=== PATIENT | female | born 1950 | race Caucasian/White ===

== ENCOUNTER 2017-04-18 18:10 | Emergency (ER) | payer OTHER ==
[2017-04-18 18:29] VITALS: RESP 16; TEMP 97.9
[2017-04-18] MEDS ORDERED: Amoxicillin-Clav 875-125 mg Tab PO STA (18:58)
[2017-04-18] MEDS ORDERED: Amoxicillin-Clav 875-125 mg Tab PO ONE (19:06)
--- NOTE | 2017-04-18 19:30 | C.PDOC ---
History Of Present Illness Patient is a 67 year old female who presents to the ER for an evaluation of a dog bite. Patient states she was bit on her right leg by a small dog yesterday evening. Patient tried to speak with helper driver, but did not understand the language , however dog had collar, appeared well and likely vaccinated. Patient's tetanus is not up to date. Patient denies fever or other complaints Time Seen by Provider: 04/18/17 18:54 Chief Complaint (Nursing): Bite History Per: Patient History/Exam Limitations: no limitations Onset/Duration Of Symptoms: Days (Since last night) Location Of Injury: Anterior: Leg Recent travel outside of the [place]: No Past Medical History Reviewed: Historical Data, Nursing Documentation, Vital Signs Vital Signs: Last Vital Signs Temp 97.9 F 04/18/17 20:04 Pulse 61 04/18/17 20:04 Resp 16 04/18/17 20:04 BP 150/84 04/18/17 20:04 Pulse Ox 98 04/18/17 22:39 - Medical History PMH: No Chronic Diseases Surgical History: No Surg Hx Family History: States: Unknown Family Hx - Social History Hx Alcohol Use: No Hx Substance Use: No - Immunization History Hx Tetanus Toxoid Vaccination: No Hx Influenza Vaccination: No Hx Pneumococcal Vaccination: No Review Of Systems Constitutional: Negative for: Fever, Chills Gastrointestinal: Negative for: Nausea, Vomiting Musculoskeletal: Positive for: Other (Right leg dog bite) Physical Exam - Physical Exam Appears: Well, Non-toxic Skin: Normal Color, Warm, Dry Head: Atraumatic, Normacephalic Eye(s): bilateral: Normal Inspection Extremity: Normal ROM, No Tenderness, No Calf Tenderness, Other (Superficial bite, posterior right calf. Healing tissue, no erythema or swelling.) Neurological/Psych: Oriented x3, Normal Speech, Other (No focal deficits) ED Course And Treatment O2 Sat by Pulse Oximetry: 98 (Room air) Pulse Ox Interpretation: Normal Medical Decision Making Medical Decision Making: Impression: 67 year old female with dog bite to right leg. Unknown status of vaccination, however animal is pet and appeared well groomed likely UTD. Advise patient to contact helper driver. Plan: * Augmentin * Tetanus Reasses: dressing applied. Rx given Disposition Counseled Patient/Family Regarding: Need For Followup, Rx Given - Disposition Disposition: HOME/ ROUTINE Disposition Time: 19:28 Condition: STABLE Additional Instructions: Take antibiotic twice daily keep wound clean and dry Prescriptions: Amoxicillin/Clavulanate [Augmentin 875 MG-125 MG] 1 tab PO BID #14 tab Instructions: Animal Bite (ED) - POA Present On Arrival: None - Clinical Impression Clinical Impression: Animal bite wound - Scribe Statement The provider has reviewed the documentation as recorded by the Scribgracie Joe All medical record entries made by the Josephibgracie were at my direction and personally dictated by me. I have reviewed the chart and agree that the record accurately reflects my personal performance of the history, physical exam, medical decision making, and the department course for this patient. I have also personally directed, reviewed, and agree with the discharge instructions and disposition.
[2017-04-18 20:05] VITALS: BP 150/84; PULSE 61
[2017-04-18 22:31] VITALS: O2SAT 98
== END 2017-04-18 20:05 | disposition home or self-care (01) ==
LOC: C.ER 18:10
DX: S80.871A Other superficial bite, right lower leg, initial encounter (principal); W54.0XXA Bitten by dog, initial encounter; Y93.9 Activity, unspecified; Y92.410 Unspecified street and highway as the place of occurrence of the external cause

== ENCOUNTER 2018-07-07 04:59 | Inpatient (IN) | payer OTHER ==
--- NOTE | 2018-07-07 06:18 | C.PDOC ---
History Of Present Illness 68 year old female with no PMH presents to the ED complaining of right sided leg pain s/p trip and fall outside on 06/26/18. 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 Patient was seen by PMD Dr. Chino yesterday, who gave her RX for XR though she was unable to go therefore she came to ED. She notes she is unable to sleep or walk due to the pain. She denies any other trauma/injuries, LOC, neck pain, dizziness, headache, change in sensation, incontinence, abdominal pain, or any other symptoms. Time Seen by Provider: 07/07/18 05:09 Chief Complaint (Nursing): Lower Extremity Problem/Injury History Per: Patient History/Exam Limitations: no limitations Onset/Duration Of Symptoms: Days Current Symptoms Are (Timing): Still Present - Hip Description Of Injury: Fell Past Medical History Reviewed: Historical Data, Nursing Documentation, Vital Signs Vital Signs: Last Vital Signs Temp 99.3 F 07/07/18 15:29 Pulse 59 L 07/07/18 15:29 Resp 20 07/07/18 15:29 BP 158/68 H 07/07/18 15:29 Pulse Ox 100 07/07/18 15:29 - Medical History PMH: No Chronic Diseases Other Surgeries: Hx of surgeries Family History: States: No Known Family Hx - Social History Hx Alcohol Use: No Hx Substance Use: No - Immunization History Hx Tetanus Toxoid Vaccination: No Hx Influenza Vaccination: No Hx Pneumococcal Vaccination: No Review Of Systems Except As Marked, All Systems Reviewed And Found Negative. Cardiovascular: Negative for: Chest Pain Respiratory: Negative for: Shortness of Breath Musculoskeletal: Positive for: Leg Pain (Right) Neurological: Negative for: Headache, Dizziness Physical Exam - Physical Exam Appears: Non-toxic, In Acute Distress (in painful distress) Skin: Warm, Dry Head: Atraumatic, Normacephalic Eye(s): bilateral: Normal Inspection, EOMI Nose: Normal Oral Mucosa: Moist Neck: Normal ROM, Trachea Midline, Supple Chest: Symmetrical Cardiovascular: Rhythm Regular Respiratory: Normal Breath Sounds, No Accessory Muscle Use, Other (Speaking full sentences) Back: No CVA Tenderness, No Vertebral Tenderness, Paraspinal Tenderness ((+) right paralumbar tenderness) Extremity: No Normal ROM (decreased secondary to pain, leg bend into her body, unable to straighten), Tenderness (tenderness to right hip and proximal femur), No Calf Tenderness, No Deformity Pulses: Left Dorsalis Pedis: Normal, Right Dorsalis Pedis: Normal Neurological/Psych: Oriented x3, Normal Speech, Normal Sensation Gait: Steady ED Course And Treatment - Laboratory Results Result Diagrams: 07/07/18 06:30 07/07/18 06:30 O2 Sat by Pulse Oximetry: 100 (RA) Pulse Ox Interpretation: Normal - Other Rad R Hip XR X-Ray: Interpreted by Me (Dr Matthews), Viewed By Me Interpretation: (+) right hip fx of femoral neck Progress Note: Patient given Flexeril 5mg Po, Toradol 15mg IM, and IV fluids. XRay of the fermur, hip, and LS spine were also ordered. Upon reviewing the XRs , labs ordered. Case discussed with Dr Matthews, agreed upon plan and admission. Case discussed with Dr Matti Song , agreed upon admission. Case discussed with Dr Ayers, agreed upon admission. Disposition - Disposition Disposition: HOSPITALIZED Disposition Time: 07:04 Condition: STABLE - Clinical Impression Clinical Impression: Fracture of right hip - PA / FRANKFURTER INSPECTOR / Resident Statement MD/DO has reviewed & agrees with the documentation as recorded. - Scribe Statement The provider has reviewed the documentation as recorded by the Josephibgracie Marion All medical record entries made by the Benjy were at my direction and personally dictated by me. I have reviewed the chart and agree that the record accurately reflects my personal performance of the history, physical exam, medical decision making, and the department course for this patient. I have also personally directed, reviewed, and agree with the discharge instructions and disposition.
[2018-07-07] MEDS ORDERED: Sodium Chloride 0.9% 1,000 ML IV ONE (06:20)
[2018-07-07] MEDS ORDERED: Sodium Chloride 0.9% 1,000 ML ONE (06:33)
[2018-07-07 06:45] LABS: BASO % 0.2 % (0.0-2.0); EOS % 0.1 % (0.0-4.0); HEMOGLOBIN 11.4 g/dL (11.0-16.0); LYMPH % 13.6 % (20.0-40.0); MEAN CELL VOLUME 92.2 fL (81.0-99.0); MEAN CORPUSCULAR HEMOGLOBIN 31.2 pg (27.0-31.0); MEAN CORPUSCULAR HGB CONC 33.9 g/dL (33.0-37.0); MEAN PLATELET VOLUME 7.2 fL (7.2-11.7); MONO # 0.7 K/uL (0.0-0.8); MONO % 9.1 % (0.0-10.0); NEUT # 5.6 K/uL (1.8-7.0); RBC 3.65 Mil/uL (3.80-5.20); RED CELL DISTRIBUTION WIDTH 15.5 % (11.5-14.5); WHITE BLOOD COUNT 7.2 K/uL (4.8-10.8)
[2018-07-07 06:56] LABS: ALB/GLOB RATIO 1.2 (1.0-2.1); ALBUMIN 3.8 g/dL (3.5-5.0); ALT/SGPT 19 U/L (9-52); AST/SGOT 26 U/L (14-36); BLOOD UREA NITROGEN 12 mg/dL (7-17); CALCIUM 8.8 mg/dl (8.6-10.4); GFR AFRICAN-AMERICAN > 60; GFR NON-AFRICAN AMERICAN > 60
[2018-07-07 07:17] LABS: INR 1.1; PROTHROMBIN TIME 12.1 SECONDS (9.7-12.2)
[2018-07-07] MEDS ORDERED: Morphine 4 MG/ML VIAL IV PRN (08:44)
--- NOTE | 2018-07-07 10:33 | RAD ---
Date of service: 07/07/2018 PROCEDURE: HISTORY: trauma -fell 1 week ago COMPARISON: None TECHNIQUE: AP view of the pelvis and applicable frog leg views obtained. FINDINGS: Complete right femoral neck fracture with proximal unopposed pull of the distal femoral segment present. The femoral head remains in the acetabulum. IMPRESSION: Complete right femoral neck fracture with proximal unopposed pull of the distal main femoral segment. Femoral head remains in the acetabulum. Comments: Findings called up to patient's floor and given to nurse, Gertrudis Feliz at 10:30 a.m. on 07/07/2018
--- NOTE | 2018-07-07 10:35 | RAD ---
Date of service: 07/07/2018 PROCEDURE: HISTORY: trauma. Fell 1 week ago COMPARISON: Right hip pelvic x-ray 07/07/2018 TECHNIQUE: Single view of the femur FINDINGS: The complete right femoral neck fracture is noted and was called up to the floor with the patient is located given to the nurse please note the hip report regarding those details The most distal femoral aspects of the femur are not visually included on this single frontal view. The right femoral shaft is intact. The right femoral head remains in the acetabular fossa as noted on the prior right hip x-ray report. IMPRESSION: Complete right femoral neck fracture. Right femoral shaft intact. Please note same-day right hip and pelvis x-ray report for further details
--- NOTE | 2018-07-07 10:38 | RAD ---
Date of service: 07/07/2018 PROCEDURE: Radiographs of the Lumbar Spine. HISTORY: trauma COMPARISON: No prior. FINDINGS: BONES: No lumbar vertebral body fractures noted. There is grade 1 spondylolisthesis of L4 relative to L5. There is L4-5 and L5-S1 facet hypertrophic arthrosis as well. The chronicity of this subluxation is not known. No oblique views to assess for any potential pars defects is available. Pars defects versus ligamentous laxity associated with the facet hypertrophic arthrosis are considerations. The spinal canal is shallow in appearance at this L4-5 and L5 levels. Levels DISC SPACES: Narrowed L5-S1 OTHER FINDINGS: The moderate stool and gas impedes optimal evaluation of the sacrum IMPRESSION: Grade 1 spondylolisthesis of L4 relative to L5. Additional findings as noted above. No lumbar vertebral body height compression fracture noted. The appearance of the L5 lumbar vertebrae is attributed to Schmorl's node indentation. For purposes of this report L1 is considered with rudimentary ribs.
--- NOTE | 2018-07-07 10:49 | RAD ---
Date of service: 07/07/2018 HISTORY: pre-op; pt has hip fracture and for OR COMPARISON: No prior. FINDINGS: LUNGS: No active pulmonary disease. PLEURA: No significant pleural effusion identified, no pneumothorax apparent. CARDIOVASCULAR: Mild cardiomegaly not excluded. No pulmonary vascular congestion. Fullness of the right hilar region may reflect vascular overlap though lymphadenopathy or mass is not excluded. Follow-up chest is advised when feasible. OSSEOUS STRUCTURES: No significant abnormalities. VISUALIZED UPPER ABDOMEN: Normal. OTHER FINDINGS: None. IMPRESSION: Vascular overlap versus adenopathy or nodule right hilar region. Follow-up chest CT with contrast advised when feasible. Mild cardiomegaly not excluded. No infiltrate, pulmonary vascular congestion, pleural effusion or pneumothorax bilaterally.
[2018-07-07 12:23] LABS: SQUAMOUS EPITHIAL < 1 /hpf (0-5); URINE AMORPHOUS SEDIMENT RARE /ul (<OCC); URINE BILIRUBIN NEGATIVE (NEGATIVE); URINE BLOOD NEGATIVE (NEGATIVE); URINE CLARITY Hazy (Clear); URINE COLOR Yellow (YELLOW); URINE GLUCOSE (UA) NORMAL (Normal); URINE LEUKOCYTE ESTERASE NEG Leu/uL (Negative); URINE PROTEIN NEGATIVE (NEGATIVE); URINE UROBILINOGEN NORMAL mg/dL (0.2-1.0)
--- NOTE | 2018-07-07 15:25 | CARD ---
APPROVED REPORT Date of service: 07/07/2018 EKG Measurement Heart [id number] HI 120P13 [id number] <Conclusion> Normal sinus rhythm Inferior infarct, age undetermined T wave abnormality, consider anterior ischemia Abnormal ECG
--- NOTE | 2018-07-07 15:41 | CP.PCM.CON ---
History of Present Illness - History of Present Illness History of Present Illness: Patient is a 68 y/o female with no significant PMH who presented to the [facility] ER with c/o worsening R hip pain. The patient states that she lost her balance and fell on the road onto her right side while walking to work on 06/26/18. She was able to get up and ambulate with a limp and manageable pain. For the past week and a half, she has been bearing the pain and walking to work until she could no longer take the pain until today. Dr. Canales was consulted for orthopedic evaluation. Currently her pain is rated a 8/10, dull and intermittent. The pain is worsened with movement and WB, alleviated with rest. The pain is associated with swelling. She denies any radiation of pain, numbness or tingling. She also denies CP/SOB/N/V/D/fever/dysuria/melena. She denies any cardiac stents/MS/CVA/DVT/PE. Review of Systems - Review of Systems All systems: reviewed and no additional remarkable complaints except Review of Systems: as per HPI Past Patient History - Past Medical History & Family History Past Medical History?: No Past Family History: Reviewed and not pertinent - Past Social History Smoking Status: Never Smoked Alcohol: None Drugs: Denies - CARDIAC Hx Cardiac Disorders: No - PULMONARY Hx Respiratory Disorders: No - NEUROLOGICAL Hx Neurological Disorder: No - HEENT Hx HEENT Problems: No - RENAL Hx Chronic Kidney Disease: No - ENDOCRINE/METABOLIC Hx Endocrine Disorders: No - HEMATOLOGICAL/ONCOLOGICAL Hx Blood Disorders: No - INTEGUMENTARY Hx Dermatological Problems: No - MUSCULOSKELETAL/RHEUMATOLOGICAL Hx Falls: No - GASTROINTESTINAL Hx Gastrointestinal Disorders: No - GENITOURINARY/GYNECOLOGICAL Hx Genitourinary Disorders: No - PSYCHIATRIC Hx Psychophysiologic Disorder: No Hx Substance Use: No - SURGICAL HISTORY Hx Surgeries: Yes Hx Section: Yes (x2) - ANESTHESIA Hx Anesthesia: Yes Hx Anesthesia Reactions: No Has any member of the family had a problem w/ anesthesia?: No Meds Allergies/Adverse Reactions: Allergies Allergy/AdvReac Type Severity Reaction Status Date / Time No Known Allergies Allergy Verified 07/07/18 05:09 - Medications Medications: Current Medications Sodium Chloride (Sodium Chloride 0.9%) 1,000 mls @ 100 mls/hr IV .Q10H ONE Stop: 07/07/18 16:19 Last Admin: 07/07/18 06:32 Dose: 100 mls/hr Morphine Sulfate (Morphine) 4 mg IV Q4 PRN PRN Reason: Pain, severe (8-10) Physical Exam - Constitutional Appears: Well, No Acute Distress - Head Exam Head Exam: ATRAUMATIC, NORMOCEPHALIC - Eye Exam Eye Exam: EOMI, Normal appearance, PERRL - ENT Exam ENT Exam: Mucous Membranes Moist - Respiratory Exam Respiratory Exam: Clear to Auscultation Bilateral, NORMAL BREATHING PATTERN - Cardiovascular Exam Cardiovascular Exam: +S1, +S2 - GI/Abdominal Exam GI & Abdominal Exam: Normal Bowel Sounds, Soft - Extremities Exam Additional comments: R hip: mild swelling, +shortened/ER limb +tenderness lateral hip and groin ROM restricted due to fx sensation intact SP/DP/TN motor intact EHL/FHL/TA/G pedal pulses intact comps soft/NT - Neurological Exam Neurological exam: Alert, Oriented x3 - Psychiatric Exam Psychiatric exam: Normal Affect, Normal Mood - Skin Skin Exam: Normal Color, Warm Results - Vital Signs Recent Vital Signs: Last Vital Signs Temp 98.4 F 07/07/18 09:00 Pulse 68 07/07/18 09:00 Resp 20 07/07/18 09:00 BP 129/72 07/07/18 09:00 Pulse Ox 99 07/07/18 09:00 - Labs Result Diagrams: 07/07/18 06:30 07/07/18 06:30 Labs: Laboratory Results - last 24 hr 07/07/18 07/07/18 07/07/18 06:30 06:30 06:30 WBC 7.2 RBC 3.65 L Hgb 11.4 Hct 33.7 L MCV 92.2 MCH 31.2 H MCHC 33.9 RDW 15.5 H Plt Count 258 MPV 7.2 Neut % (Auto) 77.0 H Lymph % (Auto) 13.6 L Sevier % (Auto) 9.1 Eos % (Auto) 0.1 Baso % (Auto) 0.2 Neut # (Auto) 5.6 Lymph # (Auto) 1.0 Sevier # (Auto) 0.7 Eos # (Auto) 0.0 Baso # (Auto) 0.0 PT 12.1 INR 1.1 APTT 32 Sodium 140 Potassium 3.7 Chloride 107 Carbon Dioxide 23 Anion Gap 14 BUN 12 Creatinine 0.4 L Est GFR ( Amer) > 60 Est GFR (Non-Af Amer) > 60 Random Glucose 144 H Calcium 8.8 Total Bilirubin 1.3 AST 26 ALT 19 Alkaline Phosphatase 131 H Total Protein 7.0 Albumin 3.8 Globulin 3.2 Albumin/Globulin Ratio 1.2 Urine Color Urine Clarity Urine pH Ur Specific [place] Urine Protein Urine Glucose (UA) Urine Ketones Urine Blood Urine Nitrate Urine Bilirubin Urine Urobilinogen Ur Leukocyte Esterase Urine WBC (Auto) Urine RBC (Auto) Ur Squamous Epith Cells Amorphous Sediment 07/07/18 11:59 WBC RBC Hgb Hct MCV MCH MCHC RDW Plt Count MPV Neut % (Auto) Lymph % (Auto) Sevier % (Auto) Eos % (Auto) Baso % (Auto) Neut # (Auto) Lymph # (Auto) Sevier # (Auto) Eos # (Auto) Baso # (Auto) PT INR APTT Sodium Potassium Chloride Carbon Dioxide Anion Gap BUN Creatinine Est GFR ( Amer) Est GFR (Non-Af Amer) Random Glucose Calcium Total Bilirubin AST ALT Alkaline Phosphatase Total Protein Albumin Globulin Albumin/Globulin Ratio Urine Color Yellow Urine Clarity Hazy Urine pH 8.0 Ur Specific [place] 1.011 Urine Protein Negative Urine Glucose (UA) Normal Urine Ketones Trace Urine Blood Negative Urine Nitrate Negative Urine Bilirubin Negative Urine Urobilinogen Normal Ur Leukocyte Esterase Neg Urine WBC (Auto) 1 Urine RBC (Auto) < 1 Ur Squamous Epith Cells < 1 Amorphous Sediment Rare H Assessment & Plan (1) Displaced fracture of right femoral neck Assessment and Plan: -Dr. Canales proposes a right JESUS ALBERTO in OR tomorrow AM. Pros/Cons/risk/benefits of procedure were explained to pt in detail. The patient and her sons express understanding and agree to proceed with procedure. -Medical clearance -T&S -Collazo -Yadkin traction, overhead trapeze -pain control -NPO pMN -above d/w Dr. Canales in agreement Status: Acute - Date & Time Date: 07/07/18 Time: 15:00 Radiology Interpretation - Notes: Notes:: Accession No. : [id number] Patient Name / ID : JAMIE VALENCIA / [id number] Exam Date : 07/07/2018 06:11:16 ( Approved ) Study Comment : Sex / Age : F / 68Y Creator : Laverne Alainz V. Dictator : Laverne Alaniz V. Gasfitter : Judicial Law Clerk : Laverne Alaniz V. Approver2 : Report Date : 07/07/2018 10:32:01 My Comment : Date of service: 07/07/2018 PROCEDURE: HISTORY: trauma -fell 1 week ago COMPARISON: None TECHNIQUE: AP view of the pelvis and applicable frog leg views obtained. FINDINGS: Complete right femoral neck fracture with proximal unopposed pull of the distal femoral segment present. The femoral head remains in the acetabulum. IMPRESSION: Complete right femoral neck fracture with proximal unopposed pull of the distal main femoral segment. Femoral head remains in the acetabulum. - Radiology Interpretation #2 Interpretation: Accession No. : [id number] Patient Name / ID : JAMIE VALENCIA / [id number] Exam Date : 07/07/2018 16:03:07 ( Approved ) Study Comment : Sex / Age : F / 68Y Creator : Serene White Dictator : Laverne Alaniz V. Gasfitter : Judicial Law Clerk : Laverne Alaniz V. Approver2 : Report Date : 07/07/2018 16:06:46 My Comment : Date of service: 07/07/2018 PROCEDURE: CT of the right Hip. HISTORY: R hip displaced femoral neck fx COMPARISON: Right hip and right femur x-rays performed on the same day 07/07/2018 TECHNIQUE: Contiguous axial images of the left hip were obtained. Coronal and sagittal reformats were generated. This CT exam was performed using one or more of the following dose reduction techniques: Automated exposure control, adjustment of the mA and/or kV according to patient size, and/or use of iterative reconstruction technique. Dose report: 161mGy-cm FINDINGS: BONES: The right femoral neck fracture anterior diastases of the fracture ends up to 1.5 cm without posterior fracture line displacement transverse plane noted. The right distal remaining femoral segment is superiorly roy connoting compatible with an unopposed muscle pull.. Femoral head maintains normal contour in the right acetabulum. A few intra osseous cystic components of the proximal right femoral neck fracture ends are noted and is ossific densities chip fracture fragments within the anterior diastatic fractured ends is noted. No additional right hemipelvic fractures noted LEFT HIP JOINT: No dislocation. SOFT TISSUES: Unremarkable. IMPRESSION: Right femoral neck fracture- as detailed above No dislocation
--- NOTE | 2018-07-07 16:24 | CT ---
Date of service: 07/07/2018 PROCEDURE: CT of the right Hip. HISTORY: R hip displaced femoral neck fx COMPARISON: Right hip and right femur x-rays performed on the same day 07/07/2018 TECHNIQUE: Contiguous axial images of the left hip were obtained. Coronal and sagittal reformats were generated. This CT exam was performed using one or more of the following dose reduction techniques: Automated exposure control, adjustment of the mA and/or kV according to patient size, and/or use of iterative reconstruction technique. Dose report: 161mGy-cm FINDINGS: BONES: The right femoral neck fracture anterior diastases of the fracture ends up to 1.5 cm without posterior fracture line displacement transverse plane noted. The right distal remaining femoral segment is superiorly roy connoting compatible with an unopposed muscle pull.. Femoral head maintains normal contour in the right acetabulum. A few intra osseous cystic components of the proximal right femoral neck fracture ends are noted and is ossific densities chip fracture fragments within the anterior diastatic fractured ends is noted. No additional right hemipelvic fractures noted LEFT HIP JOINT: No dislocation. SOFT TISSUES: Unremarkable. IMPRESSION: Right femoral neck fracture- as detailed above No dislocation
--- NOTE | 2018-07-07 20:15 | CP.PCM.PN ---
Subjective - Date & Time of Evaluation Date of Evaluation: 07/07/18 Time of Evaluation: 12:00 - Subjective Subjective: c/o rt leg pain. no fever. no chest pain. no sob. Objective - Vital Signs/Intake and Output Vital Signs (last 24 hours): Temp Pulse Resp BP Pulse Ox 99.3 F 59 L 20 158/68 H 100 07/07/18 15:29 07/07/18 15:29 07/07/18 15:29 07/07/18 15:29 07/07/18 15:29 - Medications Medications: Current Medications Morphine Sulfate (Morphine) 4 mg IV Q4 PRN PRN Reason: Pain, severe (8-10) Last Admin: 07/07/18 19:58 Dose: 4 mg - Labs Labs: 07/07/18 06:30 07/07/18 06:30 PT 12.1 SECONDS (9.7-12.2) 07/07/18 06:30 INR 1.1 07/07/18 06:30 APTT 32 SECONDS (21-34) 07/07/18 06:30 - Constitutional Appears: No Acute Distress - Eye Exam Eye Exam: Normal appearance, PERRL - ENT Exam ENT Exam: Mucous Membranes Moist - Neck Exam Neck Exam: Full ROM, Normal Inspection. absent: Lymphadenopathy - Respiratory Exam Respiratory Exam: Clear to Ausculation Bilateral, NORMAL BREATHING PATTERN - Cardiovascular Exam Cardiovascular Exam: REGULAR RHYTHM, +S1, +S2 - GI/Abdominal Exam GI & Abdominal Exam: Soft, Normal Bowel Sounds - Extremities Exam Extremities Exam: Full ROM, Normal Capillary Refill, Normal Inspection. absent : Joint Swelling, Pedal Edema - Neurological Exam Neurological Exam: Alert, Awake, CN II-XII Intact, Normal Gait, Oriented x3 - Psychiatric Exam Psychiatric exam: Normal Affect, Normal Mood Assessment and Plan - Assessment and Plan (Free Text) Assessment: medically stable with fracture rt hip. Plan: labs noted. ekg wnl. chest xray wnl. cleared medically for hip surgery.
--- NOTE | 2018-07-07 21:19 | HP ---
Copied To: Keith Chino MD Attending MD: Keith Chino MD HISTORY OF PRESENT ILLNESS: This is a 68-year-old female who was brought to the emergency room with history of fall on 06/26/2018. Patient complained of right thigh pain earlier. Patient was going to work and for the last few days she was not able to work because of the severe pain in the right thigh. Yesterday, patient was unable to bear weight on right leg, so she was brought to my office and referred for x-rays of femur, hip, and knees. Patient could not get that done. Since the pain was increasing and unbearable, she was brought to the emergency room by family. X-rays of the hip were done, which showed fracture of the right hip. REVIEW OF SYSTEMS CARDIOVASCULAR: Negative for chest pain. RESPIRATORY: Negative for shortness of breath. GI: Negative for nausea, vomiting, or abdominal pain. POLICE INSPECTOR: No focal neurological deficits. : No urinary complaints. No fever. PSYCHIATRIC: patient is stable. Other finding as mentioned above. PAST HISTORY: No history of hypertension, diabetes, OR myocardial infarction. MEDICATIONS: Patient is not on any medication at home. FAMILY HISTORY: No known inherited disease. SOCIAL HISTORY: Nonsmoker. Nonalcoholic. No IVDA. ALLERGIES: No known allergies. PHYSICAL EXAMINATION GENERAL: This is a 68-year-old female in severe right hip and thigh pain. Awake and alert. VITAL SIGNS: Temperature 98.2, pulse 61, respirations 16, blood pressure 170/80 mmHg, and pulse ox is 100% on room air. HEENT: Normal. NECK: JVP is flat. Carotid, no bruits. LUNGS: No rales. No wheezing. HEART: S1 and S2 normal. No gallop. No murmur. ABDOMEN: Soft, nontender. No organomegaly. POLICE INSPECTOR: No focal neurological deficits. EXTREMITIES: On the right extremity, severe pain and hip tenderness present. LABORATORY DATA: On admission, CBC is within normal limits. BMP is normal. X-ray of the chest is done and report is awaiting. IMPRESSION: Right hip fracture. Intractable right leg pain. PLAN: Patient will be admitted to the floor. We will get Orthopedic consult and patient may need operation. We will do pain management as of now. Patient is medically cleared for surgery. Keith Chino MD [facility] # [phone]
--- NOTE | 2018-07-08 09:32 | CP.PCM.PN ---
Subjective - Date & Time of Evaluation Date of Evaluation: 07/08/18 Time of Evaluation: 09:14 - Subjective Subjective: PT WAS GOR OR TODAY. EKG WAS QUESTIONABLE, THERE WAS NO PREVIOUS EKG TO COMPARE. DR. SPANN WAS CONSULTED. OR WAS CANCELLED. FOR ECHO AND STRESS TEST. Objective - Vital Signs/Intake and Output Vital Signs (last 24 hours): Temp Pulse Resp BP Pulse Ox 99.3 F 80 20 125/70 100 07/08/18 07:00 07/08/18 07:00 07/08/18 07:00 07/08/18 07:00 07/08/18 07:00 Intake and Output: 07/08/18 07/08/18 06:59 18:59 Intake Total 0 Output Total 400 Balance -400 - Medications Medications: Current Medications Morphine Sulfate (Morphine) 4 mg IV Q4 PRN PRN Reason: Pain, severe (8-10) Last Admin: 07/08/18 02:18 Dose: 4 mg - Labs Labs: 07/07/18 06:30 07/07/18 06:30 PT 12.1 SECONDS (9.7-12.2) 07/07/18 06:30 INR 1.1 07/07/18 06:30 APTT 32 SECONDS (21-34) 07/07/18 06:30 - Constitutional Appears: Non-toxic - Head Exam Head Exam: ATRAUMATIC, NORMAL INSPECTION, NORMOCEPHALIC - Eye Exam Eye Exam: EOMI, Normal appearance, PERRL Pupil Exam: NORMAL ACCOMODATION, PERRL - ENT Exam ENT Exam: Mucous Membranes Moist, Normal Exam - Neck Exam Neck Exam: Full ROM, Normal Inspection. absent: Lymphadenopathy - Respiratory Exam Respiratory Exam: Clear to Ausculation Bilateral, NORMAL BREATHING PATTERN - Cardiovascular Exam Cardiovascular Exam: REGULAR RHYTHM, +S1, +S2. absent: Murmur - GI/Abdominal Exam GI & Abdominal Exam: Soft, Normal Bowel Sounds. absent: Tenderness - Extremities Exam Additional comments: SEVERE PAIN IN HIP. - Back Exam Back Exam: NORMAL INSPECTION - Neurological Exam Neurological Exam: Alert, Awake, CN II-XII Intact, Normal Gait, Oriented x3 - Psychiatric Exam Psychiatric exam: Normal Affect, Normal Mood Assessment and Plan - Assessment and Plan (Free Text) Assessment: RT HIP FRACTURE. Plan: FOR CARDIAC W/U PER DR. SPANN.
--- NOTE | 2018-07-08 13:08 | CARD ---
APPROVED REPORT Date of service: 07/08/2018 EXAM: Two-dimensional and M-mode echocardiogram with Doppler and color Doppler. Other Information Quality : GoodRhythm : INDICATION Pre-Op 2D DIMENSIONS IVSd0.7 (0.7-1.1cm)LVDd4.1 (3.9-5.9cm) PWd0.7 (0.7-1.1cm)LVDs2.5 (2.5-4.0cm) FS (%) 39.0 %LVEF (%)69.8 (>50%) M-Mode DIMENSIONS Left Atrium (MM)1.53 (2.5-4.0cm)IVSd0.90 (0.7-1.1cm) Aortic Root3.37 (2.2-3.7cm)LVDd4.66 (4.0-5.6cm) Aortic Cusp Exc.2.11 (1.5-2.0cm)PWd0.69 (0.7-1.1cm) FS (%) 43 %LVDs2.65 (2.0-3.8cm) LVEF (%)74 (>50%) Aortic Valve AI P 1/2 [id number] Mitral Valve MV E Dfycqmvt14.9cm/sMV A Daradnlh26.8cm/sE/A ratio0.7 TDI E/Lateral E'0.0E/Medial E'0.0 Tricuspid Valve TR Peak Vtjaynne909bm/sTR Peak Gr.[id number] LEFT VENTRICLE The left ventricle is normal size. There is normal left ventricular wall thickness. The left ventricular function is normal. The left ventricular ejection fraction is within the normal range. There is normal LV segmental wall motion. Transmitral Doppler flow pattern is Grade I-abnormal relaxation pattern. RIGHT VENTRICLE The right ventricle is normal size. There is normal right ventricular wall thickness. The right ventricular systolic function is normal. ATRIA The left atrium size is normal. The right atrium size is normal. AORTIC VALVE The aortic valve is mildly thickened. There is mild to moderate aortic regurgitation. There is no aortic valvular stenosis. MITRAL VALVE The mitral valve is normal in structure. There is no evidence of mitral valve prolapse. There is no mitral valve stenosis. Mitral regurgitation is trace. TRICUSPID VALVE The tricuspid valve is normal in structure. There is mild tricuspid regurgitation. There is mild pulmonary hypertension. PULMONIC VALVE The pulmonary valve is normal in structure. There is trace pulmonic valvular regurgitation. GREAT VESSELS The aortic root is mildly enlarged. The IVC is normal in size and collapses >50% with inspiration. PERICARDIAL EFFUSION There is no pericardial effusion. <Conclusion> The left ventricle is normal size. There is normal left ventricular wall thickness. The left ventricular function is normal. The left ventricular ejection fraction is within the normal range. There is normal LV segmental wall motion. Transmitral Doppler flow pattern is Grade I-abnormal relaxation pattern. There is mild to moderate aortic regurgitation. There is mild tricuspid regurgitation. There is mild pulmonary hypertension.
--- NOTE | 2018-07-08 13:10 | CP.PCM.CON ---
History of Present Illness - History of Present Illness History of Present Illness: CC pre-op clearance re: rt hip fracture HPI Patient is a 68 y/o female with no significant PMH who presented to the [facility] ER with c/o worsening R hip pain. The patient states that she lost her balance and fell on the road onto her right side while walking to work on 06/26/18. She was able to get up and ambulate with a limp and manageable pain. For the past week and a half, she has been bearing the pain and walking to work until she could no longer take the pain until today. Dr. Canales was consulted for orthopedic evaluation. Currently her pain is rated a 8/10, dull and intermittent. The pain is worsened with movement and WB, alleviated with rest. The pain is associated with swelling. She denies any radiation of pain, numbness or tingling. She also denies CP/SOB/N/V/D/fever/dysuria/melena. She denies any cardiac stents/TX/CVA/DVT/PE. Patient denied any chest pain, sob, orthopnea or exertional dyspnea. No history of syncope in the past. According to son, patient is able to walk more than 10- blocks or climb the stairs without any symptoms before the fall. EKG nsr w/ non specific ST T changes. Review of Systems - Musculoskeletal Additional comments: right hip pain Past Patient History - Past Medical History & Family History Past Medical History?: No Past Family History: Reviewed and not pertinent - Past Social History Smoking Status: Never Smoked Alcohol: None Drugs: Denies - CARDIAC Hx Cardiac Disorders: No - PULMONARY Hx Respiratory Disorders: No - NEUROLOGICAL Hx Neurological Disorder: No - HEENT Hx HEENT Problems: No - RENAL Hx Chronic Kidney Disease: No - ENDOCRINE/METABOLIC Hx Endocrine Disorders: No - HEMATOLOGICAL/ONCOLOGICAL Hx Blood Disorders: No - INTEGUMENTARY Hx Dermatological Problems: No - MUSCULOSKELETAL/RHEUMATOLOGICAL Hx Falls: No - GASTROINTESTINAL Hx Gastrointestinal Disorders: No - GENITOURINARY/GYNECOLOGICAL Hx Genitourinary Disorders: No - PSYCHIATRIC Hx Substance Use: No - SURGICAL HISTORY Hx Surgeries: Yes Hx Section: Yes (x2) - ANESTHESIA Hx Anesthesia: Yes Hx Anesthesia Reactions: No Has any member of the family had a problem w/ anesthesia?: No Meds Allergies/Adverse Reactions: Allergies Allergy/AdvReac Type Severity Reaction Status Date / Time No Known Allergies Allergy Verified 07/07/18 05:09 - Medications Medications: Current Medications Morphine Sulfate (Morphine) 4 mg IV Q4 PRN PRN Reason: Pain, severe (8-10) Last Admin: 07/08/18 13:02 Dose: 4 mg Physical Exam - Constitutional Appears: Non-toxic - Head Exam Head Exam: NORMAL INSPECTION - Eye Exam Eye Exam: absent: Scleral icterus - ENT Exam ENT Exam: Mucous Membranes Moist - Respiratory Exam Respiratory Exam: Clear to Auscultation Bilateral - Cardiovascular Exam Cardiovascular Exam: REGULAR RHYTHM - GI/Abdominal Exam GI & Abdominal Exam: Soft - Extremities Exam Additional comments: fracture right hip - Neurological Exam Neurological exam: Alert, Oriented x3 Results - Vital Signs Recent Vital Signs: Last Vital Signs Temp 99.3 F 07/08/18 07:00 Pulse 80 07/08/18 07:00 Resp 20 07/08/18 07:00 BP 125/70 07/08/18 07:00 Pulse Ox 100 07/08/18 07:00 - Labs Result Diagrams: 07/07/18 06:30 07/07/18 06:30 Labs: Laboratory Results - last 24 hr 07/08/18 01:00 Blood Type O POSITIVE Antibody Screen Negative Assessment & Plan - Assessment and Plan (Free Text) Assessment: Fracture right hip Plan: Patient may go for ORIF under general anesthesia with acceptable risk. No cardiac work-up needed at this time since patient is asymptomatic cardiacwise with marginal cardiac risk factor. - Date & Time Date: 07/08/18 Time: 13:17
--- NOTE | 2018-07-08 16:03 | CP.PCM.PN ---
<Alirio Thomas - Last Filed: 07/08/18 18:07> Subjective - Date & Time of Evaluation Date of Evaluation: 07/08/18 Time of Evaluation: 14:30 - Subjective Subjective: Patient seen and examined at bedside with family. Pain better controlled today. Surgery today cancelled due to pending cardiac clearance. No new complaints. Objective - Vital Signs/Intake and Output Vital Signs (last 24 hours): Temp Pulse Resp BP Pulse Ox 99.3 F 80 20 125/70 100 07/08/18 07:00 07/08/18 07:00 07/08/18 07:00 07/08/18 07:00 07/08/18 07:00 Intake and Output: 07/08/18 07/08/18 06:59 18:59 Intake Total 0 250 Output Total 400 175 Balance -400 75 - Medications Medications: Current Medications Acetaminophen (Tylenol 325mg Tab) 650 mg PO Q6 PRN PRN Reason: Headache Morphine Sulfate (Morphine) 4 mg IV Q4 PRN PRN Reason: Pain, severe (8-10) Last Admin: 07/08/18 13:02 Dose: 4 mg - Labs Labs: 07/07/18 06:30 07/07/18 06:30 PT 12.1 SECONDS (9.7-12.2) 07/07/18 06:30 INR 1.1 07/07/18 06:30 APTT 32 SECONDS (21-34) 07/07/18 06:30 - Extremities Exam Additional comments: R hip: mild swelling, +shortened/ER limb, bucks traction in place +tenderness lateral hip and groin ROM restricted due to fx sensation intact SP/DP/TN motor intact EHL/FHL/TA/G pedal pulses intact comps soft/NT Assessment and Plan (1) Displaced fracture of right femoral neck Assessment & Plan: -pain control -continue bucks traction -overhead trapeze -b/l scd -hold DVT ppx -pending cardiac clearance -ice R hip -plan for OR this Friday pending clearance -above d/w Dr. Dash in agreement Status: Acute <Marilia Guerrero - Last Filed: 07/08/18 23:46> Subjective - Subjective Subjective: Planning for OR, total hip arthroplasty at 6am Friday, please complete cardiac workup and provide cardiac clearance to facilitate going to surgery on Friday early AM. Hold DVT proph for at least 24 hours preop Objective - Vital Signs/Intake and Output Vital Signs (last 24 hours): Temp Pulse Resp BP Pulse Ox 98.7 F 80 18 135/75 100 07/08/18 15:00 07/08/18 22:22 07/08/18 15:00 07/08/18 22:22 07/08/18 15:00 Intake and Output: 07/08/18 07/09/18 18:59 06:59 Intake Total 250 Output Total 175 200 Balance 75 -200 - Medications Medications: Current Medications Acetaminophen (Tylenol 325mg Tab) 650 mg PO Q6 PRN PRN Reason: Headache Morphine Sulfate (Morphine) 4 mg IV Q4 PRN PRN Reason: Pain, severe (8-10) Last Admin: 07/08/18 22:21 Dose: 4 mg - Labs Labs: 07/07/18 06:30 07/07/18 06:30 PT 12.1 SECONDS (9.7-12.2) 07/07/18 06:30 INR 1.1 07/07/18 06:30 APTT 32 SECONDS (21-34) 07/07/18 06:30
[2018-07-09] MEDS: Morphine 4 MG/ML VIAL IV PRN ×3 (06:49→21:36)
[2018-07-09] MEDS ORDERED: Caffeine Citrated **INJ** 20 MG/ML IV ONE (07:39)
--- NOTE | 2018-07-09 12:39 | CP.PCM.PN ---
Subjective - Date & Time of Evaluation Date of Evaluation: 07/09/18 Time of Evaluation: 12:36 - Subjective Subjective: rt hip pain present. afebrile. medically stable. ekg today NSR, NON SP STT CHANGES. ECHO WNL. STRESS TEST IN PROGRESS. Objective - Vital Signs/Intake and Output Vital Signs (last 24 hours): Temp Pulse Resp BP Pulse Ox 98.4 F 77 20 107/66 96 07/09/18 07:30 07/09/18 07:30 07/09/18 07:30 07/09/18 07:30 07/09/18 07:30 Intake and Output: 07/09/18 07/09/18 06:59 18:59 Intake Total 120 Output Total 450 Balance -330 - Medications Medications: Current Medications Acetaminophen (Tylenol 325mg Tab) 650 mg PO Q6 PRN PRN Reason: Headache Morphine Sulfate (Morphine) 4 mg IV Q4 PRN PRN Reason: Pain, severe (8-10) Last Admin: 07/09/18 06:49 Dose: 4 mg - Labs Labs: 07/07/18 06:30 07/07/18 06:30 PT 12.1 SECONDS (9.7-12.2) 07/07/18 06:30 INR 1.1 07/07/18 06:30 APTT 32 SECONDS (21-34) 07/07/18 06:30 - Constitutional Appears: No Acute Distress - Eye Exam Eye Exam: EOMI, Normal appearance, PERRL Pupil Exam: NORMAL ACCOMODATION, PERRL - ENT Exam ENT Exam: Mucous Membranes Moist, Normal Exam - Neck Exam Neck Exam: Full ROM, Normal Inspection. absent: Lymphadenopathy - Respiratory Exam Respiratory Exam: Clear to Ausculation Bilateral, NORMAL BREATHING PATTERN - Cardiovascular Exam Cardiovascular Exam: REGULAR RHYTHM, +S1, +S2. absent: Murmur - GI/Abdominal Exam GI & Abdominal Exam: Soft, Normal Bowel Sounds. absent: Tenderness - Extremities Exam Extremities Exam: Full ROM, Normal Capillary Refill, Normal Inspection. absent : Joint Swelling, Pedal Edema - Back Exam Back Exam: NORMAL INSPECTION - Neurological Exam Neurological Exam: Alert, Awake, CN II-XII Intact, Normal Gait, Oriented x3 - Psychiatric Exam Psychiatric exam: Normal Affect, Normal Mood Assessment and Plan - Assessment and Plan (Free Text) Assessment: MEDICALLY STABLE. Plan: CT PRESENT MANAGEMENT FOR OR IN AM.
--- NOTE | 2018-07-09 13:39 | CP.PCM.PN ---
Subjective - Date & Time of Evaluation Date of Evaluation: 07/09/18 Time of Evaluation: 13:39 - Subjective Subjective: Patient seen and examined with brother at bedside. Pain well controlled. Completed final phase of stress test this AM. No acute events overnight. Objective - Vital Signs/Intake and Output Vital Signs (last 24 hours): Temp Pulse Resp BP Pulse Ox 98.4 F 77 20 107/66 96 07/09/18 07:30 07/09/18 07:30 07/09/18 07:30 07/09/18 07:30 07/09/18 07:30 Intake and Output: 07/09/18 07/09/18 06:59 18:59 Intake Total 120 Output Total 450 Balance -330 - Medications Medications: Current Medications Acetaminophen (Tylenol 325mg Tab) 650 mg PO Q6 PRN PRN Reason: Headache Morphine Sulfate (Morphine) 4 mg IV Q4 PRN PRN Reason: Pain, severe (8-10) Last Admin: 07/09/18 06:49 Dose: 4 mg - Labs Labs: 07/07/18 06:30 07/07/18 06:30 PT 12.1 SECONDS (9.7-12.2) 07/07/18 06:30 INR 1.1 07/07/18 06:30 APTT 32 SECONDS (21-34) 07/07/18 06:30 - Extremities Exam Additional comments: R hip: mild swelling, +shortened/ER limb, bucks traction in place +tenderness lateral hip and groin ROM restricted due to fx sensation intact SP/DP/TN motor intact EHL/FHL/TA/G pedal pulses intact comps soft/NT Assessment and Plan (1) Displaced fracture of right femoral neck Assessment & Plan: -pain control -continue bucks traction -b/l scd -hold DVT ppx -pending cardiac clearance -ice R hip -OR tomorrow for R JESUS ALBERTO at 6AM -above d/w Dr. Dash in agreement Status: Acute
--- NOTE | 2018-07-09 15:18 | CARD ---
APPROVED REPORT Date of service: 07/09/2018 Protocol: LEXISCAN Test Type: LEXISCAN STRESS Test Indications: PREOP Target HR: 153 bpm Resting ECG: nsr w/ ns st t changes Resting Heart Rate: 77 bpm Resting Blood Pressure: 132/80mmHg submaximum (85%): 130 bpm TEST SUMMARY PREINFSNHYPERV.23:[id number]/80.0. INFUSIONDOSE 100:300.00.01.082/.0. [id number]/80.0. PROCEDURE Pharmacologic stress testing was performed using 0.4mg per 5ml of regadenoson given intravenously over 7-10 seconds. POST EXERCISE Reason for Termination: Protocol Completed Target HR: No Max HR: 82 bpm 67% of Maximum Predicted HR: 153 bpm Exercise duration: 00:30 min:sec, 0 Stage Exercise capacity: 1.0METs Max Blood Pressure: 132/80mmHg Blood Pressure response to exercise: normal resting BP - appropriate response Heart Rate response to exercise: appropriate Chest Pain: No, none Angina index: 0 Arrhythmia: Yes, ST Change: Yes, Depression horizontal, 1mm in leads v4-v6 Deviation: 0 mm INTERPRETATION Stress EKG Conclusion: POSITIVE LEXISCAN STRESS TEST NORMAL BP RESPONSE TO LEXISCAN NUCLEAR STUDIES TO BE READ SEPARATELY EXAM: Myocardial Perfusion REST/STRESS Imaging Protocol The imaging protocol used to acquire images was Rest Tc-99m/stress Tc-99m 2 days Rest Spect myocardial perfusion imaging was performed in supine position 41 minutes following the injection of 28 mCi of Tc-99 Myoview. Gated Stress Spect was performed 42 minutes after intravenous 33.1 mCi Tc-99 Myoview injection. The images were gated to evaluate regional wall motion and calculate ventricular ejection fraction.Images were reconstructed using backfilter projection method in short horizontal and verticle long axis. Spect slices were generated. RESTING DATA EDV50.58axQO9.90L/min ESV13.00mlMyocardial Mass94.00g Av. Heart Rate78.00bpm EF74.00% STRESS DATA EDV39.69tbEB6.70L/min ESV7.00mlMyocardial Mass75.00g EF82.00% Regional WT score at stress:0.00 Regional WM score at stress:0.00 Summed WT score at stress:0.00 Av. Heart Rate82.00bpmSummed WM score at stress:0.00 LV Perf. Quant 17 Seg. SSS0.00 17 Seg. SRS0.00 17 Seg. SDS0.00 Stress Defect Extent (% LAD)0.00Rest Defect Extent (% LAD)0.00Rev. Defect Extent (% LAD)0.00 Stress Defect Extent (% LCX)7.50Rest Defect Extent (% LCX)0.00Rev. Defect Extent (% LCX)3.80 Stress Defect Extent (% RCA)0.00Rest Defect Extent (% RCA)0.00Rev. Defect Extent (% RCA)0.00 Stress Defect Extent (% TOMASA)1.30Rest Defect Extent (% TOMASA)0.00Rev. Defect Extent (% TOMASA)0.70 IMPRESSION Normal Myocardial Perfusion exercise stress study Left Ventricle LV Function:Left ventricle systolic function is normal. The Ejection Fraction is >70%. Regional Wall Motion:There is normal left ventricular wall motion. Metabolism/Perfusion There are no perfusion/metabolism defects. Conclusion 1. There is no stress-induced ischemia noted. 2. Left ventricle systolic function is normal. 3. The Ejection Fraction is >70%.
[2018-07-10] MEDS: Morphine 4 MG/ML VIAL IV PRN (04:04)
[2018-07-10 04:33] LABS: BASO % 0.5 % (0.0-2.0); EOS # 0.1 K/uL (0.0-0.7); EOS % 1.7 % (0.0-4.0); HEMOGLOBIN 10.8 g/dL (11.0-16.0); LYMPH # 1.2 K/uL (1.0-4.3); LYMPH % 18.8 % (20.0-40.0); MEAN CELL VOLUME 92.1 fL (81.0-99.0); MEAN CORPUSCULAR HEMOGLOBIN 30.5 pg (27.0-31.0); MEAN CORPUSCULAR HGB CONC 33.2 g/dL (33.0-37.0); MEAN PLATELET VOLUME 7.9 fL (7.2-11.7); MONO # 0.7 K/uL (0.0-0.8); MONO % 11.4 % (0.0-10.0); NEUT # 4.2 K/uL (1.8-7.0); NEUT % 67.6 % (50.0-75.0); RBC 3.55 Mil/uL (3.80-5.20); RED CELL DISTRIBUTION WIDTH 15.5 % (11.5-14.5); WHITE BLOOD COUNT 6.2 K/uL (4.8-10.8)
[2018-07-10 05:01] LABS: ALB/GLOB RATIO 1.1 (1.0-2.1); ALBUMIN 3.5 g/dL (3.5-5.0); ALT/SGPT 23 U/L (9-52); AST/SGOT 21 U/L (14-36); BLOOD UREA NITROGEN 16 mg/dL (7-17); CALCIUM 8.6 mg/dl (8.6-10.4); GFR AFRICAN-AMERICAN > 60; GFR NON-AFRICAN AMERICAN > 60
[2018-07-10] MEDS ORDERED: Propofol 10 mg/ml Inj (20 ML) ONE (06:33)
[2018-07-10] MEDS ORDERED: ceFAZolin IV 2 gm in Dextrose 2 GM/50 ML BAG IVPB ONE ×2 (06:59→10:59)
--- NOTE | 2018-07-10 07:14 | CP.PCM.PN ---
Subjective - Date & Time of Evaluation Date of Evaluation: 07/09/18 Time of Evaluation: 17:00 - Subjective Subjective: Lexiscan nuclear studies - NEGATIVE FOR ISCHEMIA OK to go for surgery with acceptable risk. Objective - Vital Signs/Intake and Output Vital Signs (last 24 hours): Temp Pulse Resp BP Pulse Ox 99.2 F 20 L 20 119/74 97 07/10/18 06:11 07/10/18 06:11 07/09/18 23:30 07/10/18 06:11 07/10/18 06:11 Intake and Output: 07/10/18 07/10/18 06:59 18:59 Intake Total 350 Output Total 1350 Balance -1000 - Medications Medications: Current Medications Acetaminophen (Tylenol 325mg Tab) 650 mg PO Q6 PRN PRN Reason: Headache Morphine Sulfate (Morphine) 4 mg IV Q4 PRN PRN Reason: Pain, severe (8-10) Last Admin: 07/10/18 04:04 Dose: 4 mg - Labs Labs: 07/10/18 04:29 07/10/18 04:29 PT 12.1 SECONDS (9.7-12.2) 07/07/18 06:30 INR 1.1 07/07/18 06:30 APTT 32 SECONDS (21-34) 07/07/18 06:30 - Constitutional Appears: Non-toxic - Head Exam Head Exam: NORMAL INSPECTION - Eye Exam Eye Exam: absent: Scleral icterus - ENT Exam ENT Exam: Mucous Membranes Moist - Neck Exam Neck Exam: Full ROM - Respiratory Exam Respiratory Exam: Clear to Ausculation Bilateral - Cardiovascular Exam Cardiovascular Exam: REGULAR RHYTHM - Extremities Exam Extremities Exam: absent: Pedal Edema Additional comments: +hip fracture Assessment and Plan - Assessment and Plan (Free Text) Assessment: Hip Fracture Plan: NEGATIVE Lexiscan nuclear studies for ischemia. Patient may go for ORIF with acceptable risk.
[2018-07-10] MEDS ORDERED: Bacitracin 150,000 UNIT in Sodium Chloride 0.9% Irrig 3,000 ML IR SCH (07:38)
[2018-07-10] MEDS ORDERED: Bupivacaine Liposomal Inj 20 ml INFIL ONE (07:38)
[2018-07-10] MEDS ORDERED: Rocuronium 10 mg/ml (5 ml) ONE ×2 (07:40→08:55)
[2018-07-10] MEDS ORDERED: Sodium Chloride 0.9% 60 ML IV ONE (08:16)
[2018-07-10] MEDS ORDERED: Neostigmine Methylsulfate 3mg/3ml Syringe IV ONE (11:07)
[2018-07-10] MEDS ORDERED: oxyCODONE 10 mg Immediate Release Tab PO PRN (11:28)
[2018-07-10] MEDS ORDERED: HYDROmorphone 0.5 mg/0.5 ml ISec IVP PRN (11:30)
--- NOTE | 2018-07-10 12:31 | RAD ---
Date of service: 07/10/2018 PROCEDURE: Intraoperative Fluoroscopy. HISTORY: RT. HIP FX. FINDINGS: Fluoroscopic assistance was provided. Fluoroscopy time = 136.6 seconds. Radiation dose = 7.26 mGy. Please refer to the operative report from DESTINI Knutson, , MD ESTHER.
--- NOTE | 2018-07-10 13:03 | RAD ---
PROCEDURE: Right Hip Radiographs. HISTORY: s/p R JESUS ALBERTO COMPARISON: 07/07/2018 FINDINGS: BONES: Status post right total hip replacement. There is new fracture of the medial right inferior pubic ramus and possible fracture at the junction of the right inferior pubic ramus and acetabulum. JOINTS: Right total hip replacement, normally situated. SOFT TISSUES: Normal. OTHER FINDINGS: None. IMPRESSION: Fracture right inferior pubic ramus medial aspect, new since prior radiograph. Questionable 2nd fracture at the junction of inferior pubic ramus with acetabulum. Further radiographic evaluation is suggested. These findings were described, by telephone, to the nurse, Karolina, in the post anesthesia, at 1:00 p.m. on 07/10/2018.
[2018-07-10] MEDS: Lactated Ringer's 1,000 ML IV SCH ×2 (13:34→20:53)
[2018-07-10] MEDS: ceFAZolin IV 2 gm in Dextrose 2 GM/50 ML BAG IVPB SCH (20:37)
[2018-07-11] MEDS: ceFAZolin IV 2 gm in Dextrose 2 GM/50 ML BAG IVPB SCH ×3 (03:09→18:15)
[2018-07-11 08:00] LABS: MEAN CELL VOLUME 92.2 fL (81.0-99.0); MEAN CORPUSCULAR HEMOGLOBIN 31.6 pg (27.0-31.0); MEAN CORPUSCULAR HGB CONC 34.2 g/dL (33.0-37.0); MEAN PLATELET VOLUME 8.3 fL (7.2-11.7); RBC 2.3 Mil/uL (3.80-5.20); RED CELL DISTRIBUTION WIDTH 15.1 % (11.5-14.5); WHITE BLOOD COUNT 4.5 K/uL (4.8-10.8)
[2018-07-11 08:13] LABS: HEMOGLOBIN 7.3 g/dL (11.0-16.0)
[2018-07-11 08:26] LABS: BLOOD UREA NITROGEN 15 mg/dL (7-17); CALCIUM 7.3 mg/dl (8.6-10.4); GFR AFRICAN-AMERICAN > 60; GFR NON-AFRICAN AMERICAN > 60
[2018-07-11] MEDS: Docusate-Senna 50 mg-8.6 mg Tab PO SCH (09:01)
[2018-07-11] MEDS: Enoxaparin 40 mg Syringe SC SCH (09:01)
--- NOTE | 2018-07-11 14:51 | CP.PCM.PN ---
Subjective - Date & Time of Evaluation Date of Evaluation: 07/10/18 Time of Evaluation: 14:00 - Subjective Subjective: POST OP. STABLE. Objective - Vital Signs/Intake and Output Vital Signs (last 24 hours): Temp Pulse Resp BP Pulse Ox 98.6 F 84 18 116/73 100 07/11/18 14:33 07/11/18 14:33 07/11/18 14:33 07/11/18 14:33 07/11/18 13:33 Intake and Output: 07/11/18 07/11/18 06:59 18:59 Intake Total 1100 0 Output Total 750 Balance 350 0 - Medications Medications: Current Medications Acetaminophen (Tylenol 325mg Tab) 975 mg PO Q8 [facility] Last Admin: 07/11/18 05:30 Dose: 975 mg Enoxaparin Sodium (Lovenox) 40 mg SC DAILY [facility] Last Admin: 07/11/18 09:01 Dose: 40 mg Ferrous Sulfate (Feosol) 325 mg PO BID [facility] Last Admin: 07/11/18 09:01 Dose: 325 mg Folic Acid (Folic Acid) 1 mg PO DAILY [facility] Last Admin: 07/11/18 09:01 Dose: 1 mg Cefazolin Sodium/Dextrose (Ancef Iv 2 Gm Duplex) 2 gm in 50 mls @ 100 mls/hr IVPB Q8H [facility] PRN Reason: Protocol Stop: 07/15/18 19:01 Last Admin: 07/11/18 10:50 Dose: 100 mls/hr Lactated Ringer's (Lactated Ringer's) 1,000 mls @ 100 mls/hr IV .Q10H [facility] Last Admin: 07/10/18 20:53 Dose: 100 mls/hr Morphine Sulfate (Morphine) 2 mg IVP Q4H PRN PRN Reason: Pain, severe (8-10) Last Admin: 07/10/18 16:22 Dose: 2 mg Oxycodone HCl (Oxycodone Immediate Release Tab) 10 mg PO Q6 PRN PRN Reason: Pain, moderate (4-7) Last Admin: 07/10/18 20:51 Dose: 10 mg Senna/Docusate Sodium (Senokot S 50 Mg-8.6 Mg) 1 tab PO DAILY [facility] Last Admin: 07/11/18 09:01 Dose: 1 tab - Labs Labs: 07/11/18 07:46 07/11/18 07:46 PT 12.1 SECONDS (9.7-12.2) 07/07/18 06:30 INR 1.1 07/07/18 06:30 APTT 32 SECONDS (21-34) 07/07/18 06:30 - Constitutional Appears: No Acute Distress - Eye Exam Eye Exam: Normal appearance, PERRL - ENT Exam ENT Exam: Mucous Membranes Moist - Neck Exam Neck Exam: Full ROM, Normal Inspection. absent: Lymphadenopathy - Respiratory Exam Respiratory Exam: Clear to Ausculation Bilateral, NORMAL BREATHING PATTERN - Cardiovascular Exam Cardiovascular Exam: REGULAR RHYTHM, +S1, +S2. absent: Murmur - GI/Abdominal Exam GI & Abdominal Exam: Soft, Normal Bowel Sounds. absent: Tenderness - Extremities Exam Extremities Exam: Full ROM, Normal Capillary Refill, Normal Inspection. absent : Joint Swelling, Pedal Edema - Back Exam Back Exam: NORMAL INSPECTION Assessment and Plan - Assessment and Plan (Free Text) Assessment: SAME. Plan: CT PRESENT TREATMENT.
--- NOTE | 2018-07-11 14:54 | CP.PCM.PN ---
Subjective - Date & Time of Evaluation Date of Evaluation: 07/11/18 Time of Evaluation: 11:00 - Subjective Subjective: AFEBRILE. LEG PAIN PRESENT. Objective - Vital Signs/Intake and Output Vital Signs (last 24 hours): Temp Pulse Resp BP Pulse Ox 98.6 F 84 18 116/73 100 07/11/18 14:33 07/11/18 14:33 07/11/18 14:33 07/11/18 14:33 07/11/18 13:33 Intake and Output: 07/11/18 07/11/18 06:59 18:59 Intake Total 1100 0 Output Total 750 Balance 350 0 - Medications Medications: Current Medications Acetaminophen (Tylenol 325mg Tab) 975 mg PO Q8 [facility] Last Admin: 07/11/18 05:30 Dose: 975 mg Enoxaparin Sodium (Lovenox) 40 mg SC DAILY [facility] Last Admin: 07/11/18 09:01 Dose: 40 mg Ferrous Sulfate (Feosol) 325 mg PO BID [facility] Last Admin: 07/11/18 09:01 Dose: 325 mg Folic Acid (Folic Acid) 1 mg PO DAILY [facility] Last Admin: 07/11/18 09:01 Dose: 1 mg Cefazolin Sodium/Dextrose (Ancef Iv 2 Gm Duplex) 2 gm in 50 mls @ 100 mls/hr IVPB Q8H [facility] PRN Reason: Protocol Stop: 07/15/18 19:01 Last Admin: 07/11/18 10:50 Dose: 100 mls/hr Lactated Ringer's (Lactated Ringer's) 1,000 mls @ 100 mls/hr IV .Q10H [facility] Last Admin: 07/10/18 20:53 Dose: 100 mls/hr Morphine Sulfate (Morphine) 2 mg IVP Q4H PRN PRN Reason: Pain, severe (8-10) Last Admin: 07/10/18 16:22 Dose: 2 mg Oxycodone HCl (Oxycodone Immediate Release Tab) 10 mg PO Q6 PRN PRN Reason: Pain, moderate (4-7) Last Admin: 07/10/18 20:51 Dose: 10 mg Senna/Docusate Sodium (Senokot S 50 Mg-8.6 Mg) 1 tab PO DAILY [facility] Last Admin: 07/11/18 09:01 Dose: 1 tab - Labs Labs: 07/11/18 07:46 07/11/18 07:46 PT 12.1 SECONDS (9.7-12.2) 07/07/18 06:30 INR 1.1 07/07/18 06:30 APTT 32 SECONDS (21-34) 07/07/18 06:30 - Constitutional Appears: No Acute Distress - Eye Exam Eye Exam: PERRL - ENT Exam ENT Exam: Mucous Membranes Moist - Respiratory Exam Respiratory Exam: Clear to Ausculation Bilateral, NORMAL BREATHING PATTERN - Cardiovascular Exam Cardiovascular Exam: REGULAR RHYTHM - GI/Abdominal Exam GI & Abdominal Exam: Soft, Normal Bowel Sounds. absent: Tenderness - Exam Exam: Circumcision, NORMAL INSPECTION External exam: NORMAL EXTERNAL EXAM Speculum exam: NORMAL SPECULUM EXAM Bimanual exam: NORMAL BIMANUAL EXAM - Extremities Exam Extremities Exam: Full ROM, Normal Capillary Refill, Normal Inspection. absent : Joint Swelling, Pedal Edema Assessment and Plan - Assessment and Plan (Free Text) Assessment: ANEMIA BLOOD LOSS. HB 7.3 Plan: FOR BLOOD TRANSFUSION. PT.
[2018-07-11 16:16] VITALS: RESP 20
[2018-07-11] MEDS: Lactated Ringer's 1,000 ML IV SCH (18:17)
[2018-07-12] MEDS: Lactated Ringer's 1,000 ML IV SCH ×3 (07:25→13:54)
[2018-07-12 07:49] LABS: MEAN CELL VOLUME 90.8 fL (81.0-99.0); MEAN CORPUSCULAR HEMOGLOBIN 31.7 pg (27.0-31.0); MEAN CORPUSCULAR HGB CONC 34.9 g/dL (33.0-37.0); RBC 3.31 Mil/uL (3.80-5.20); RED CELL DISTRIBUTION WIDTH 14.7 % (11.5-14.5)
[2018-07-12 07:59] LABS: HEMOGLOBIN 10.5 g/dL (11.0-16.0); WHITE BLOOD COUNT 7.1 K/uL (4.8-10.8)
[2018-07-12 08:15] LABS: BLOOD UREA NITROGEN 10 mg/dL (7-17); CALCIUM 7.9 mg/dl (8.6-10.4); GFR AFRICAN-AMERICAN > 60; GFR NON-AFRICAN AMERICAN > 60
[2018-07-12] MEDS: Enoxaparin 40 mg Syringe SC SCH (09:33)
[2018-07-12] MEDS: Docusate-Senna 50 mg-8.6 mg Tab PO SCH (09:34)
[2018-07-12] MEDS ORDERED: oxyCODONE 5 mg Immediate Release Tab PO PRN (10:06)
--- NOTE | 2018-07-12 14:01 | CP.PCM.PN ---
Subjective - Date & Time of Evaluation Date of Evaluation: 07/12/18 Time of Evaluation: 12:00 - Subjective Subjective: medically stable. no fever. Objective - Vital Signs/Intake and Output Vital Signs (last 24 hours): Temp Pulse Resp BP Pulse Ox 98.1 F 76 20 117/62 100 07/12/18 07:25 07/12/18 07:25 07/12/18 07:25 07/12/18 07:25 07/12/18 07:25 Intake and Output: 07/12/18 07/12/18 06:59 18:59 Intake Total 1295 Output Total 1000 Balance 295 - Medications Medications: Current Medications Acetaminophen (Tylenol 325mg Tab) 975 mg PO Q8 [facility] Last Admin: 07/12/18 05:45 Dose: 975 mg Diazepam (Valium) 2 mg PO Q6 PRN PRN Reason: Muscle spasm Docusate Sodium (Colace) 100 mg PO BID [facility] Last Admin: 07/12/18 09:36 Dose: 100 mg Enoxaparin Sodium (Lovenox) 30 mg SC DAILY [facility] Ferrous Sulfate (Feosol) 325 mg PO BID [facility] Last Admin: 07/12/18 09:34 Dose: 325 mg Folic Acid (Folic Acid) 1 mg PO DAILY [facility] Last Admin: 07/12/18 09:34 Dose: 1 mg Lactated Ringer's (Lactated Ringer's) 1,000 mls @ 50 mls/hr IV .Q20H [facility] Last Admin: 07/12/18 13:54 Dose: 50 mls/hr Ondansetron HCl (Zofran Inj) 4 mg IVP Q6 PRN PRN Reason: Nausea/Vomiting Last Admin: 07/11/18 19:08 Dose: 4 mg Oxycodone HCl (Oxycodone Immediate Release Tab) 5 mg PO Q6 PRN PRN Reason: Pain, moderate (4-7) Senna/Docusate Sodium (Senokot S 50 Mg-8.6 Mg) 1 tab PO DAILY [facility] Last Admin: 07/12/18 09:34 Dose: 1 tab - Labs Labs: 07/12/18 07:43 07/12/18 07:43 PT 12.1 SECONDS (9.7-12.2) 07/07/18 06:30 INR 1.1 07/07/18 06:30 APTT 32 SECONDS (21-34) 07/07/18 06:30 - Constitutional Appears: No Acute Distress - Eye Exam Eye Exam: Normal appearance, PERRL - ENT Exam ENT Exam: Mucous Membranes Moist - Respiratory Exam Respiratory Exam: Clear to Ausculation Bilateral, NORMAL BREATHING PATTERN - Cardiovascular Exam Cardiovascular Exam: REGULAR RHYTHM, +S1, +S2 - GI/Abdominal Exam GI & Abdominal Exam: Soft, Normal Bowel Sounds - Extremities Exam Extremities Exam: Full ROM, Normal Capillary Refill, Normal Inspection. absent : Joint Swelling, Pedal Edema - Back Exam Back Exam: NORMAL INSPECTION - Neurological Exam Neurological Exam: Alert, Awake, CN II-XII Intact, Normal Gait, Oriented x3 - Psychiatric Exam Psychiatric exam: Normal Affect, Normal Mood Assessment and Plan - Assessment and Plan (Free Text) Assessment: stable. Plan: pt/ot. for rehab.
--- NOTE | 2018-07-12 18:38 | CP.PCM.PN ---
Subjective - Date & Time of Evaluation Date of Evaluation: 07/11/18 Time of Evaluation: 10:00 - Subjective Subjective: awake no fever NAD no sob Objective - Vital Signs/Intake and Output Vital Signs (last 24 hours): Temp Pulse Resp BP Pulse Ox 99.0 F 83 20 143/73 100 07/12/18 15:00 07/12/18 15:00 07/12/18 15:00 07/12/18 15:00 07/12/18 15:00 Intake and Output: 07/12/18 07/12/18 06:59 18:59 Intake Total 1295 900 Output Total 1000 800 Balance 295 100 - Medications Medications: Current Medications Acetaminophen (Tylenol 325mg Tab) 975 mg PO Q8 [facility] Last Admin: 07/12/18 05:45 Dose: 975 mg Diazepam (Valium) 2 mg PO Q6 PRN PRN Reason: Muscle spasm Docusate Sodium (Colace) 100 mg PO BID [facility] Last Admin: 07/12/18 17:41 Dose: 100 mg Enoxaparin Sodium (Lovenox) 30 mg SC DAILY [facility] Ferrous Sulfate (Feosol) 325 mg PO BID [facility] Last Admin: 07/12/18 17:41 Dose: 325 mg Folic Acid (Folic Acid) 1 mg PO DAILY [facility] Last Admin: 07/12/18 09:34 Dose: 1 mg Lactated Ringer's (Lactated Ringer's) 1,000 mls @ 50 mls/hr IV .Q20H [facility] Last Admin: 07/12/18 13:54 Dose: 50 mls/hr Ondansetron HCl (Zofran Inj) 4 mg IVP Q6 PRN PRN Reason: Nausea/Vomiting Last Admin: 07/11/18 19:08 Dose: 4 mg Oxycodone HCl (Oxycodone Immediate Release Tab) 5 mg PO Q6 PRN PRN Reason: Pain, moderate (4-7) Senna/Docusate Sodium (Senokot S 50 Mg-8.6 Mg) 1 tab PO DAILY [facility] Last Admin: 07/12/18 09:34 Dose: 1 tab - Labs Labs: 07/12/18 07:43 07/12/18 07:43 PT 12.1 SECONDS (9.7-12.2) 07/07/18 06:30 INR 1.1 07/07/18 06:30 APTT 32 SECONDS (21-34) 07/07/18 06:30 - Constitutional Appears: Non-toxic - Head Exam Head Exam: NORMAL INSPECTION - Eye Exam Eye Exam: absent: Scleral icterus - Neck Exam Neck Exam: Full ROM - Respiratory Exam Respiratory Exam: Clear to Ausculation Bilateral - Cardiovascular Exam Cardiovascular Exam: REGULAR RHYTHM - GI/Abdominal Exam GI & Abdominal Exam: Soft - Extremities Exam Extremities Exam: absent: Pedal Edema Assessment and Plan - Assessment and Plan (Free Text) Assessment: S/p ORIF, Hip Fracture Plan: Cont DVT prophylaxis Case discussed with Dr Diego Chino
--- NOTE | 2018-07-12 18:42 | PCM.SURG1 ---
Surgeon's Initial Post Op Note - Surgeon's Notes Surgeon: Marilia Canales MD Sequins Slinger: Amari Angel PA-C (1st teacher assistant), Alirio Thomas (2nd teacher assistant) Type of Anesthesia: General Endo Pre-Operative Diagnosis: Right hip displaced femoarl neck fracture Operative Findings: Right hip/pelvis. #1 displaced femoral neck fracture. #2 min-displaced inferior pubic ramus fracture Post-Operative Diagnosis: Right hip/pelvis. #1 displaced femoral neck fracture. #2 min-displaced inferior pubic ramus fracture Operation Performed: Right hip total hip arthroplasty Specimen/Specimens Removed: specimen= vickie cuts per [facility] protocol. complications= none. implants = Medacta versafit press fit acetabular cup 46mm , 1x 15mm length screw, 1x 40mm length screw, 32 mm UHMWPE liner for acetabular cup, 32 mm Co-Cr head 0 offset, size 2 RIVERA coated std femoral stem press fit. DBX putty MTF 1cc, 0.5cc Estimated Blood Loss: EBL {In ML}: 500 Blood Products Given: N/A Drains Used: No Drains Post-Op Condition: Good Date of Surgery/Procedure: 07/10/18 Time of Surgery/Procedure: 09:00
--- NOTE | 2018-07-12 18:45 | CP.PCM.PN ---
Subjective - Date & Time of Evaluation Date of Evaluation: 07/11/18 Time of Evaluation: 10:00 - Subjective Subjective: s/p ORIF, rt hip no complications NAD Objective - Vital Signs/Intake and Output Vital Signs (last 24 hours): Temp Pulse Resp BP Pulse Ox 99.0 F 83 20 143/73 100 07/12/18 15:00 07/12/18 15:00 07/12/18 15:00 07/12/18 15:00 07/12/18 15:00 Intake and Output: 07/12/18 07/12/18 06:59 18:59 Intake Total 1295 900 Output Total 1000 800 Balance 295 100 - Medications Medications: Current Medications Acetaminophen (Tylenol 325mg Tab) 975 mg PO Q8 [facility] Last Admin: 07/12/18 05:45 Dose: 975 mg Diazepam (Valium) 2 mg PO Q6 PRN PRN Reason: Muscle spasm Docusate Sodium (Colace) 100 mg PO BID [facility] Last Admin: 07/12/18 17:41 Dose: 100 mg Enoxaparin Sodium (Lovenox) 30 mg SC DAILY [facility] Ferrous Sulfate (Feosol) 325 mg PO BID [facility] Last Admin: 07/12/18 17:41 Dose: 325 mg Folic Acid (Folic Acid) 1 mg PO DAILY [facility] Last Admin: 07/12/18 09:34 Dose: 1 mg Lactated Ringer's (Lactated Ringer's) 1,000 mls @ 50 mls/hr IV .Q20H [facility] Last Admin: 07/12/18 13:54 Dose: 50 mls/hr Ondansetron HCl (Zofran Inj) 4 mg IVP Q6 PRN PRN Reason: Nausea/Vomiting Last Admin: 07/11/18 19:08 Dose: 4 mg Oxycodone HCl (Oxycodone Immediate Release Tab) 5 mg PO Q6 PRN PRN Reason: Pain, moderate (4-7) Senna/Docusate Sodium (Senokot S 50 Mg-8.6 Mg) 1 tab PO DAILY [facility] Last Admin: 07/12/18 09:34 Dose: 1 tab - Labs Labs: 07/12/18 07:43 07/12/18 07:43 PT 12.1 SECONDS (9.7-12.2) 07/07/18 06:30 INR 1.1 07/07/18 06:30 APTT 32 SECONDS (21-34) 07/07/18 06:30 - Constitutional Appears: Non-toxic - Head Exam Head Exam: NORMAL INSPECTION - Eye Exam Eye Exam: absent: Scleral icterus - Neck Exam Neck Exam: Full ROM - Respiratory Exam Respiratory Exam: Clear to Ausculation Bilateral - Cardiovascular Exam Cardiovascular Exam: REGULAR RHYTHM - GI/Abdominal Exam GI & Abdominal Exam: Soft. absent: Tenderness - Extremities Exam Extremities Exam: absent: Pedal Edema Additional comments: rt hip pain Assessment and Plan - Assessment and Plan (Free Text) Assessment: s/p ORIF, right hip Plan: Monitor H/H; Transfused prn DVT prop CARLOS when more stable
--- NOTE | 2018-07-12 18:47 | CP.PCM.PN ---
Subjective - Date & Time of Evaluation Date of Evaluation: 07/11/18 Time of Evaluation: 13:00 - Subjective Subjective: Pt lying in bed comfortably. Pain rated 4/10 and localized to surgical wound. Denies shortness of breath/chest pain/headache/nausea and vomiting/numbness and tingling/calf pain Objective - Vital Signs/Intake and Output Vital Signs (last 24 hours): Temp Pulse Resp BP Pulse Ox 99.0 F 83 20 143/73 100 07/12/18 15:00 07/12/18 15:00 07/12/18 15:00 07/12/18 15:00 07/12/18 15:00 Intake and Output: 07/12/18 07/12/18 06:59 18:59 Intake Total 1295 900 Output Total 1000 800 Balance 295 100 - Medications Medications: Current Medications Acetaminophen (Tylenol 325mg Tab) 975 mg PO Q8 [facility] Last Admin: 07/12/18 05:45 Dose: 975 mg Diazepam (Valium) 2 mg PO Q6 PRN PRN Reason: Muscle spasm Docusate Sodium (Colace) 100 mg PO BID [facility] Last Admin: 07/12/18 17:41 Dose: 100 mg Enoxaparin Sodium (Lovenox) 30 mg SC DAILY [facility] Ferrous Sulfate (Feosol) 325 mg PO BID [facility] Last Admin: 07/12/18 17:41 Dose: 325 mg Folic Acid (Folic Acid) 1 mg PO DAILY [facility] Last Admin: 07/12/18 09:34 Dose: 1 mg Lactated Ringer's (Lactated Ringer's) 1,000 mls @ 50 mls/hr IV .Q20H [facility] Last Admin: 07/12/18 13:54 Dose: 50 mls/hr Ondansetron HCl (Zofran Inj) 4 mg IVP Q6 PRN PRN Reason: Nausea/Vomiting Last Admin: 07/11/18 19:08 Dose: 4 mg Oxycodone HCl (Oxycodone Immediate Release Tab) 5 mg PO Q6 PRN PRN Reason: Pain, moderate (4-7) Senna/Docusate Sodium (Senokot S 50 Mg-8.6 Mg) 1 tab PO DAILY [facility] Last Admin: 07/12/18 09:34 Dose: 1 tab - Labs Labs: 07/12/18 07:43 07/12/18 07:43 PT 12.1 SECONDS (9.7-12.2) 07/07/18 06:30 INR 1.1 07/07/18 06:30 APTT 32 SECONDS (21-34) 07/07/18 06:30 - Extremities Exam Additional comments: right lower extremity: + TTP at groin and pubis, Surgical dressing clean/dry/ intact, no redness or warmth, limb length same as nonsurgical/injured side +5/5 motor strength in ankle dorsiflexion/plantarflexion, toes up and down Sensory intact L2-S1, deep peroneal nerve/tibial nerve/superficial peroneal nerve/sural nerve 2+ dorsalis pedis pulse, brisk cap refill all toes Left lower extremity: no TTP, no swelling/warmth/erythema, full range of motion at all joints without pain, no instability +5/5 motor strength in hip flexion/extension, knee flexion/extension,ankle dorsiflexion/plantarflexion, toes up and down Sensory intact L2-S1, deep peroneal nerve/tibial nerve/superficial peroneal nerve/sural nerve 2+ dorsalis pedis pulse, brisk cap refill all toes Assessment and Plan - Assessment and Plan (Free Text) Assessment: 68-year-old female status post fall 06/26/18 while walking to work, right hip pain not improving, presented to ER at [facility] on 07/07/18 Diagnosis = Right hip/pelvis #1 displaced femoral neck fracture #2 minimally displaced inferior pubic ramus fracture Status post right hip total hip arthroplasty 07/10/18 Postoperative day #1 Plan: Right lower extremity: -Clinically progressing well and medically stable postop -Underwent packed RBC transfusion today, hemoglobin 7.3 -strict nonweightbearing right lower extremity at all times, combination of total hip arthroplasty implant and inferior pubic ramus fracture on same side -Physical therapy = out of bed as much as possible, ambulation while maintaining strict non-weightbearing right lower xtremity with use of walker -Medical management and cardiology management per prima -Subacute rehabilitation placement for case management/social worker health services/physical therapy evaluation -DVT prophylaxis unless primary medical team has contraindication -Pain control = standing Tylenol 1000 mg every 8 hour, Valium as needed for pain and spasm -Will follow -please contact me directly with any questions, concerns, updates at [phone] thank you for allowing me to participate in the care of your patient Marilia Canales MD Orthopedic Surgery
--- NOTE | 2018-07-13 00:17 | CARD ---
APPROVED REPORT Date of service: 07/08/2018 EKG Measurement Heart [id number] <Conclusion> Normal sinus rhythm Nonspecific T wave abnormality Abnormal ECG
[2018-07-13 06:12] LABS: HEMOGLOBIN 9.9 g/dL (11.0-16.0); MEAN CELL VOLUME 91.9 fL (81.0-99.0); MEAN CORPUSCULAR HEMOGLOBIN 31.8 pg (27.0-31.0); MEAN CORPUSCULAR HGB CONC 34.6 g/dL (33.0-37.0); MEAN PLATELET VOLUME 7.7 fL (7.2-11.7); RBC 3.12 Mil/uL (3.80-5.20); RED CELL DISTRIBUTION WIDTH 14.4 % (11.5-14.5); WHITE BLOOD COUNT 6.1 K/uL (4.8-10.8)
[2018-07-13 06:52] LABS: BLOOD UREA NITROGEN 8 mg/dL (7-17); CALCIUM 8.1 mg/dl (8.6-10.4); GFR AFRICAN-AMERICAN > 60; GFR NON-AFRICAN AMERICAN > 60
[2018-07-13] MEDS: Enoxaparin 30 mg Syringe SC SCH (10:26)
[2018-07-13] MEDS: Docusate-Senna 50 mg-8.6 mg Tab PO SCH (10:28)
--- NOTE | 2018-07-13 12:48 | CP.PCM.PN ---
Subjective - Date & Time of Evaluation Date of Evaluation: 07/13/18 Time of Evaluation: 12:46 - Subjective Subjective: MEDICAL CONDITION STABLE. AFEBRILE. VS WNL. HB 9.9 Objective - Vital Signs/Intake and Output Vital Signs (last 24 hours): Temp Pulse Resp BP Pulse Ox 98.2 F 90 20 126/72 100 07/13/18 08:56 07/13/18 08:56 07/13/18 08:56 07/13/18 08:56 07/13/18 08:56 Intake and Output: 07/13/18 07/13/18 06:59 18:59 Intake Total 500 Output Total 900 Balance -400 - Medications Medications: Current Medications Acetaminophen (Tylenol 325mg Tab) 975 mg PO Q8 [facility] Last Admin: 07/13/18 06:00 Dose: Not Given Diazepam (Valium) 2 mg PO Q6 PRN PRN Reason: Muscle spasm Docusate Sodium (Colace) 100 mg PO BID [facility] Last Admin: 07/13/18 10:28 Dose: 100 mg Enoxaparin Sodium (Lovenox) 30 mg SC DAILY [facility] Last Admin: 07/13/18 10:26 Dose: 30 mg Ferrous Sulfate (Feosol) 325 mg PO BID [facility] Last Admin: 07/13/18 10:28 Dose: 325 mg Folic Acid (Folic Acid) 1 mg PO DAILY [facility] Last Admin: 07/13/18 10:28 Dose: 1 mg Lactated Ringer's (Lactated Ringer's) 1,000 mls @ 50 mls/hr IV .Q20H [facility] Last Admin: 07/12/18 13:54 Dose: 50 mls/hr Ondansetron HCl (Zofran Inj) 4 mg IVP Q6 PRN PRN Reason: Nausea/Vomiting Last Admin: 07/11/18 19:08 Dose: 4 mg Oxycodone HCl (Oxycodone Immediate Release Tab) 5 mg PO Q6 PRN PRN Reason: Pain, moderate (4-7) Senna/Docusate Sodium (Senokot S 50 Mg-8.6 Mg) 1 tab PO DAILY [facility] Last Admin: 07/13/18 10:28 Dose: 1 tab - Labs Labs: 07/13/18 06:05 07/13/18 06:05 PT 12.1 SECONDS (9.7-12.2) 07/07/18 06:30 INR 1.1 07/07/18 06:30 APTT 32 SECONDS (21-34) 07/07/18 06:30 - Constitutional Appears: No Acute Distress - Eye Exam Eye Exam: PERRL - ENT Exam ENT Exam: Normal Exam - Respiratory Exam Respiratory Exam: Clear to Ausculation Bilateral, NORMAL BREATHING PATTERN - Cardiovascular Exam Cardiovascular Exam: REGULAR RHYTHM, +S1, +S2 - GI/Abdominal Exam GI & Abdominal Exam: Soft, Normal Bowel Sounds - Back Exam Back Exam: NORMAL INSPECTION - Neurological Exam Neurological Exam: Alert, Awake, CN II-XII Intact, Normal Gait, Oriented x3 - Psychiatric Exam Psychiatric exam: Normal Affect, Normal Mood Assessment and Plan - Assessment and Plan (Free Text) Assessment: STABLE. Plan: FOR REHAB. CT OTHER TREATMENT.
[2018-07-13] MEDS: Lactated Ringer's 1,000 ML IV SCH (13:52)
[2018-07-13] MEDS: Calcium-Vit D 500 mg-200 Units Tab UD PO SCH (14:33)
--- NOTE | 2018-07-13 16:05 | CP.PCM.PN ---
Subjective - Date & Time of Evaluation Date of Evaluation: 07/13/18 Time of Evaluation: 16:03 - Subjective Subjective: Patient with family at bedside. Says she was out of bed earlier and declined pain medication. No newc omplaints. Objective - Vital Signs/Intake and Output Vital Signs (last 24 hours): Temp Pulse Resp BP Pulse Ox 98.2 F 90 20 126/72 100 07/13/18 08:56 07/13/18 08:56 07/13/18 08:56 07/13/18 08:56 07/13/18 08:56 Intake and Output: 07/13/18 07/13/18 06:59 18:59 Intake Total 500 520 Output Total 900 800 Balance -400 -280 - Medications Medications: Current Medications Acetaminophen (Tylenol 325mg Tab) 975 mg PO Q8 [facility] Last Admin: 07/13/18 14:32 Dose: Not Given Calcium/Vitamin D (Oyster Shell Calcium/Vitamin D 500 Mg-200 Iu) 1 tab PO DAILY [facility] Last Admin: 07/13/18 14:33 Dose: 1 tab Diazepam (Valium) 2 mg PO Q6 PRN PRN Reason: Muscle spasm Docusate Sodium (Colace) 100 mg PO BID [facility] Last Admin: 07/13/18 10:28 Dose: 100 mg Enoxaparin Sodium (Lovenox) 30 mg SC DAILY [facility] Last Admin: 07/13/18 10:26 Dose: 30 mg Ferrous Sulfate (Feosol) 325 mg PO BID [facility] Last Admin: 07/13/18 10:28 Dose: 325 mg Folic Acid (Folic Acid) 1 mg PO DAILY [facility] Last Admin: 07/13/18 10:28 Dose: 1 mg Lactated Ringer's (Lactated Ringer's) 1,000 mls @ 50 mls/hr IV .Q20H [facility] Last Admin: 07/13/18 13:52 Dose: Not Given Ondansetron HCl (Zofran Inj) 4 mg IVP Q6 PRN PRN Reason: Nausea/Vomiting Last Admin: 07/11/18 19:08 Dose: 4 mg Oxycodone HCl (Oxycodone Immediate Release Tab) 5 mg PO Q6 PRN PRN Reason: Pain, moderate (4-7) Senna/Docusate Sodium (Senokot S 50 Mg-8.6 Mg) 1 tab PO DAILY [facility] Last Admin: 07/13/18 10:28 Dose: 1 tab - Labs Labs: 07/13/18 06:05 07/13/18 06:05 PT 12.1 SECONDS (9.7-12.2) 07/07/18 06:30 INR 1.1 07/07/18 06:30 APTT 32 SECONDS (21-34) 07/07/18 06:30 - Constitutional Appears: Well, No Acute Distress - Extremities Exam Additional comments: right hip: dressing changed: incision intact, dry, no erythema, mild swelling, + ROM ankle/toes, sensation intact +DP/PT pulses calves soft NT neg homans Assessment and Plan (1) Displaced fracture of right femoral neck Assessment & Plan: POD#3 s/p right hip THR for fx -d/c planning -vit D level -PT/O(T -VTE proph -d/w Dr. Canales, agrees with above Status: Acute
[2018-07-14] MEDS: Lactated Ringer's 1,000 ML IV SCH (06:38)
[2018-07-14] MEDS: Enoxaparin 30 mg Syringe SC SCH (10:25)
[2018-07-14] MEDS: Calcium-Vit D 500 mg-200 Units Tab UD PO SCH (10:25)
[2018-07-14] MEDS: Docusate-Senna 50 mg-8.6 mg Tab PO SCH (10:26)
--- NOTE | 2018-07-14 12:51 | CP.PCM.PN ---
Subjective - Date & Time of Evaluation Date of Evaluation: 07/14/18 Time of Evaluation: 12:49 - Subjective Subjective: PT FEELS BETTER. DIET ADVISE. OSCAL-D STARTED. LOW GRADE TEMP. Objective - Vital Signs/Intake and Output Vital Signs (last 24 hours): Temp Pulse Resp BP Pulse Ox 100.3 F H 87 20 123/74 100 07/14/18 08:00 07/14/18 08:00 07/14/18 08:00 07/14/18 08:00 07/14/18 08:00 Intake and Output: 07/14/18 07/14/18 06:59 18:59 Intake Total 1100 Output Total 500 Balance 600 - Medications Medications: Current Medications Acetaminophen (Tylenol 325mg Tab) 975 mg PO Q8 [facility] Last Admin: 07/14/18 10:37 Dose: 975 mg Calcium/Vitamin D (Oyster Shell Calcium/Vitamin D 500 Mg-200 Iu) 1 tab PO DAILY [facility] Last Admin: 07/14/18 10:25 Dose: 1 tab Diazepam (Valium) 2 mg PO Q6 PRN PRN Reason: Muscle spasm Docusate Sodium (Colace) 100 mg PO BID [facility] Last Admin: 07/14/18 10:26 Dose: Not Given Enoxaparin Sodium (Lovenox) 30 mg SC DAILY [facility] Last Admin: 07/14/18 10:25 Dose: 30 mg Ferrous Sulfate (Feosol) 325 mg PO BID [facility] Last Admin: 07/14/18 10:26 Dose: 325 mg Folic Acid (Folic Acid) 1 mg PO DAILY [facility] Last Admin: 07/14/18 10:26 Dose: 1 mg Lactated Ringer's (Lactated Ringer's) 1,000 mls @ 50 mls/hr IV .Q20H [facility] Last Admin: 07/14/18 06:38 Dose: 50 mls/hr Ondansetron HCl (Zofran Inj) 4 mg IVP Q6 PRN PRN Reason: Nausea/Vomiting Last Admin: 07/11/18 19:08 Dose: 4 mg Oxycodone HCl (Oxycodone Immediate Release Tab) 5 mg PO Q6 PRN PRN Reason: Pain, moderate (4-7) Senna/Docusate Sodium (Senokot S 50 Mg-8.6 Mg) 1 tab PO DAILY [facility] Last Admin: 07/14/18 10:26 Dose: 1 tab - Labs Labs: 07/13/18 06:05 07/13/18 06:05 PT 12.1 SECONDS (9.7-12.2) 07/07/18 06:30 INR 1.1 07/07/18 06:30 APTT 32 SECONDS (21-34) 07/07/18 06:30 - Constitutional Appears: No Acute Distress - Eye Exam Eye Exam: PERRL - ENT Exam ENT Exam: Normal Exam - Neck Exam Neck Exam: Normal Inspection - Respiratory Exam Respiratory Exam: Clear to Ausculation Bilateral, NORMAL BREATHING PATTERN - Cardiovascular Exam Cardiovascular Exam: REGULAR RHYTHM, +S1, +S2 - GI/Abdominal Exam GI & Abdominal Exam: Soft, Normal Bowel Sounds - Back Exam Back Exam: NORMAL INSPECTION - Neurological Exam Neurological Exam: Alert, Awake, CN II-XII Intact, Normal Gait, Oriented x3 - Psychiatric Exam Psychiatric exam: Normal Affect, Normal Mood Assessment and Plan - Assessment and Plan (Free Text) Assessment: MEICALLY STABLE. LOW GRADE TEMP OBSERVE. TYLENOL PRN. Plan: CT PRESENT TREATMENT.
[2018-07-14] MEDS ORDERED: Ergocalciferol 50,000 Intl Units Cap PO SCH (13:00)
--- NOTE | 2018-07-14 23:00 | CP.PCM.PN ---
Subjective - Date & Time of Evaluation Date of Evaluation: 07/14/18 Time of Evaluation: 09:00 - Subjective Subjective: NAD expected discomfort at surgical site Objective - Vital Signs/Intake and Output Vital Signs (last 24 hours): Temp Pulse Resp BP Pulse Ox 98.3 F 79 20 127/69 100 07/14/18 16:00 07/14/18 16:00 07/14/18 16:00 07/14/18 16:00 07/14/18 16:00 Intake and Output: 07/14/18 07/15/18 18:59 06:59 Intake Total 750 Output Total 700 Balance 50 - Medications Medications: Current Medications Acetaminophen (Tylenol 325mg Tab) 975 mg PO Q8 [facility] Last Admin: 07/14/18 21:36 Dose: Not Given Calcium/Vitamin D (Oyster Shell Calcium/Vitamin D 500 Mg-200 Iu) 1 tab PO DAILY [facility] Last Admin: 07/14/18 10:25 Dose: 1 tab Diazepam (Valium) 2 mg PO Q6 PRN PRN Reason: Muscle spasm Docusate Sodium (Colace) 100 mg PO BID [facility] Last Admin: 07/14/18 17:50 Dose: 100 mg Enoxaparin Sodium (Lovenox) 30 mg SC DAILY [facility] Last Admin: 07/14/18 10:25 Dose: 30 mg Ergocalciferol (Drisdol 50,000 Intl Units Cap) 1 cap PO Q7D [facility] Last Admin: 07/14/18 13:46 Dose: 1 cap Ferrous Sulfate (Feosol) 325 mg PO BID [facility] Last Admin: 07/14/18 17:50 Dose: 325 mg Folic Acid (Folic Acid) 1 mg PO DAILY [facility] Last Admin: 07/14/18 10:26 Dose: 1 mg Lactated Ringer's (Lactated Ringer's) 1,000 mls @ 50 mls/hr IV .Q20H [facility] Last Admin: 07/14/18 06:38 Dose: 50 mls/hr Ondansetron HCl (Zofran Inj) 4 mg IVP Q6 PRN PRN Reason: Nausea/Vomiting Last Admin: 07/11/18 19:08 Dose: 4 mg Oxycodone HCl (Oxycodone Immediate Release Tab) 5 mg PO Q6 PRN PRN Reason: Pain, moderate (4-7) Senna/Docusate Sodium (Senokot S 50 Mg-8.6 Mg) 1 tab PO DAILY [facility] Last Admin: 07/14/18 10:26 Dose: 1 tab - Labs Labs: 07/13/18 06:05 07/13/18 06:05 PT 12.1 SECONDS (9.7-12.2) 07/07/18 06:30 INR 1.1 07/07/18 06:30 APTT 32 SECONDS (21-34) 07/07/18 06:30 - Constitutional Appears: Non-toxic - Head Exam Head Exam: NORMAL INSPECTION - Eye Exam Eye Exam: absent: Scleral icterus - ENT Exam ENT Exam: Mucous Membranes Dry - Neck Exam Neck Exam: Full ROM - Respiratory Exam Respiratory Exam: Decreased Breath Sounds - Cardiovascular Exam Cardiovascular Exam: REGULAR RHYTHM - GI/Abdominal Exam GI & Abdominal Exam: Soft - Extremities Exam Extremities Exam: absent: Calf Tenderness Assessment and Plan - Assessment and Plan (Free Text) Assessment: s/p ORIF, rt hip fracture Plan: Pain meds CARLOS
--- NOTE | 2018-07-14 23:04 | CP.PCM.PN ---
Subjective - Date & Time of Evaluation Date of Evaluation: 07/13/18 Time of Evaluation: 08:15 - Subjective Subjective: NAD No pain No sob Objective - Vital Signs/Intake and Output Vital Signs (last 24 hours): Temp Pulse Resp BP Pulse Ox 98.3 F 79 20 127/69 100 07/14/18 16:00 07/14/18 16:00 07/14/18 16:00 07/14/18 16:00 07/14/18 16:00 Intake and Output: 07/14/18 07/15/18 18:59 06:59 Intake Total 750 Output Total 700 Balance 50 - Medications Medications: Current Medications Acetaminophen (Tylenol 325mg Tab) 975 mg PO Q8 [facility] Last Admin: 07/14/18 21:36 Dose: Not Given Calcium/Vitamin D (Oyster Shell Calcium/Vitamin D 500 Mg-200 Iu) 1 tab PO DAILY [facility] Last Admin: 07/14/18 10:25 Dose: 1 tab Diazepam (Valium) 2 mg PO Q6 PRN PRN Reason: Muscle spasm Docusate Sodium (Colace) 100 mg PO BID [facility] Last Admin: 07/14/18 17:50 Dose: 100 mg Enoxaparin Sodium (Lovenox) 30 mg SC DAILY [facility] Last Admin: 07/14/18 10:25 Dose: 30 mg Ergocalciferol (Drisdol 50,000 Intl Units Cap) 1 cap PO Q7D [facility] Last Admin: 07/14/18 13:46 Dose: 1 cap Ferrous Sulfate (Feosol) 325 mg PO BID [facility] Last Admin: 07/14/18 17:50 Dose: 325 mg Folic Acid (Folic Acid) 1 mg PO DAILY [facility] Last Admin: 07/14/18 10:26 Dose: 1 mg Lactated Ringer's (Lactated Ringer's) 1,000 mls @ 50 mls/hr IV .Q20H [facility] Last Admin: 07/14/18 06:38 Dose: 50 mls/hr Ondansetron HCl (Zofran Inj) 4 mg IVP Q6 PRN PRN Reason: Nausea/Vomiting Last Admin: 07/11/18 19:08 Dose: 4 mg Oxycodone HCl (Oxycodone Immediate Release Tab) 5 mg PO Q6 PRN PRN Reason: Pain, moderate (4-7) Senna/Docusate Sodium (Senokot S 50 Mg-8.6 Mg) 1 tab PO DAILY [facility] Last Admin: 07/14/18 10:26 Dose: 1 tab - Labs Labs: 07/13/18 06:05 07/13/18 06:05 PT 12.1 SECONDS (9.7-12.2) 07/07/18 06:30 INR 1.1 07/07/18 06:30 APTT 32 SECONDS (21-34) 07/07/18 06:30 - Constitutional Appears: Non-toxic - Eye Exam Eye Exam: absent: Scleral icterus - Respiratory Exam Respiratory Exam: Clear to Ausculation Bilateral - Cardiovascular Exam Cardiovascular Exam: REGULAR RHYTHM - GI/Abdominal Exam GI & Abdominal Exam: Soft - Extremities Exam Extremities Exam: absent: Pedal Edema - Neurological Exam Neurological Exam: Alert, Oriented x3 Assessment and Plan - Assessment and Plan (Free Text) Assessment: s/p ORIF, rt hip Plan: DVT proph CARLOS
[2018-07-15] MEDS: Lactated Ringer's 1,000 ML IV SCH (03:57)
[2018-07-15 08:06] LABS: EOS # 0.1 K/uL (0.0-0.7); EOS % 4.5 % (0.0-4.0); HEMOGLOBIN 9.9 g/dL (11.0-16.0); LYMPH # 0.9 K/uL (1.0-4.3); LYMPH % 34.2 % (20.0-40.0); MEAN CELL VOLUME 90.8 fL (81.0-99.0); MEAN CORPUSCULAR HEMOGLOBIN 31.1 pg (27.0-31.0); MEAN CORPUSCULAR HGB CONC 34.2 g/dL (33.0-37.0); MEAN PLATELET VOLUME 6.7 fL (7.2-11.7); MONO # 0.5 K/uL (0.0-0.8); MONO % 17.8 % (0.0-10.0); NEUT # 1.1 K/uL (1.8-7.0); NEUT % 42.5 % (50.0-75.0); NRBC % 0.2 % (0.0-2.0); RBC 3.19 Mil/uL (3.80-5.20); RED CELL DISTRIBUTION WIDTH 14.3 % (11.5-14.5)
[2018-07-15 08:07] LABS: WHITE BLOOD COUNT 2.7 K/uL (4.8-10.8)
[2018-07-15] MEDS: Enoxaparin 30 mg Syringe SC SCH (10:55)
[2018-07-15] MEDS: Docusate-Senna 50 mg-8.6 mg Tab PO SCH (10:56)
[2018-07-15] MEDS: Calcium-Vit D 500 mg-200 Units Tab UD PO SCH (10:58)
--- NOTE | 2018-07-15 11:42 | CP.PCM.PN ---
Subjective - Date & Time of Evaluation Date of Evaluation: 07/15/18 Time of Evaluation: 08:00 - Subjective Subjective: Ortho f/u Dr. Canales Patient says her hip is better. No new complaints. Objective - Vital Signs/Intake and Output Vital Signs (last 24 hours): Temp Pulse Resp BP Pulse Ox 98.6 F 86 20 111/70 100 07/15/18 07:00 07/15/18 07:00 07/15/18 07:00 07/15/18 07:00 07/15/18 07:00 Intake and Output: 07/15/18 07/15/18 06:59 18:59 Intake Total 500 Output Total 200 Balance 300 - Medications Medications: Current Medications Acetaminophen (Tylenol 325mg Tab) 975 mg PO Q8 [facility] Last Admin: 07/15/18 06:15 Dose: Not Given Calcium/Vitamin D (Oyster Shell Calcium/Vitamin D 500 Mg-200 Iu) 1 tab PO DAILY [facility] Last Admin: 07/15/18 10:58 Dose: 1 tab Diazepam (Valium) 2 mg PO Q6 PRN PRN Reason: Muscle spasm Docusate Sodium (Colace) 100 mg PO BID [facility] Last Admin: 07/15/18 10:56 Dose: 100 mg Enoxaparin Sodium (Lovenox) 30 mg SC DAILY [facility] Last Admin: 07/15/18 10:55 Dose: 30 mg Ergocalciferol (Drisdol 50,000 Intl Units Cap) 1 cap PO Q7D [facility] Last Admin: 07/14/18 13:46 Dose: 1 cap Ferrous Sulfate (Feosol) 325 mg PO BID [facility] Last Admin: 07/15/18 10:56 Dose: 325 mg Folic Acid (Folic Acid) 1 mg PO DAILY [facility] Last Admin: 07/15/18 10:56 Dose: 1 mg Lactated Ringer's (Lactated Ringer's) 1,000 mls @ 50 mls/hr IV .Q20H [facility] Last Admin: 07/15/18 03:57 Dose: 50 mls/hr Ondansetron HCl (Zofran Inj) 4 mg IVP Q6 PRN PRN Reason: Nausea/Vomiting Last Admin: 07/11/18 19:08 Dose: 4 mg Oxycodone HCl (Oxycodone Immediate Release Tab) 5 mg PO Q6 PRN PRN Reason: Pain, moderate (4-7) Senna/Docusate Sodium (Senokot S 50 Mg-8.6 Mg) 1 tab PO DAILY [facility] Last Admin: 07/15/18 10:56 Dose: 1 tab - Labs Labs: 07/15/18 07:47 07/13/18 06:05 PT 12.1 SECONDS (9.7-12.2) 07/07/18 06:30 INR 1.1 07/07/18 06:30 APTT 32 SECONDS (21-34) 07/07/18 06:30 - Extremities Exam Additional comments: RLE: +ROM ankle/toes, incision intact, dry, no erythema. calves soft NT neg homans minimal swelling to thigh Assessment and Plan (1) Displaced fracture of right femoral neck Assessment & Plan: POD#5 s/p R THR ortho stable for d/c f/u Dr. Canales approx 10 days call for appt PT/OT keep incision dressed d/w Dr. Canales, agrees with above Status: Acute (2) Vitamin D deficiency Assessment & Plan: supp as per PMD Status: Acute (3) Acute blood loss anemia Assessment & Plan: s/p transfusion stable Status: Acute
--- NOTE | 2018-07-15 12:39 | CP.PCM.PN ---
Subjective - Date & Time of Evaluation Date of Evaluation: 07/15/18 Time of Evaluation: 12:37 - Subjective Subjective: MEDICALLY STABLE. GETTING PT. AFEBRILE. Objective - Vital Signs/Intake and Output Vital Signs (last 24 hours): Temp Pulse Resp BP Pulse Ox 98.6 F 86 20 111/70 100 07/15/18 07:00 07/15/18 07:00 07/15/18 07:00 07/15/18 07:00 07/15/18 07:00 Intake and Output: 07/15/18 07/15/18 06:59 18:59 Intake Total 500 Output Total 200 Balance 300 - Medications Medications: Current Medications Acetaminophen (Tylenol 325mg Tab) 975 mg PO Q8 [facility] Last Admin: 07/15/18 06:15 Dose: Not Given Calcium/Vitamin D (Oyster Shell Calcium/Vitamin D 500 Mg-200 Iu) 1 tab PO DAILY [facility] Last Admin: 07/15/18 10:58 Dose: 1 tab Diazepam (Valium) 2 mg PO Q6 PRN PRN Reason: Muscle spasm Docusate Sodium (Colace) 100 mg PO BID [facility] Last Admin: 07/15/18 10:56 Dose: 100 mg Enoxaparin Sodium (Lovenox) 30 mg SC DAILY [facility] Last Admin: 07/15/18 10:55 Dose: 30 mg Ergocalciferol (Drisdol 50,000 Intl Units Cap) 1 cap PO Q7D [facility] Last Admin: 07/14/18 13:46 Dose: 1 cap Ferrous Sulfate (Feosol) 325 mg PO BID [facility] Last Admin: 07/15/18 10:56 Dose: 325 mg Folic Acid (Folic Acid) 1 mg PO DAILY [facility] Last Admin: 07/15/18 10:56 Dose: 1 mg Lactated Ringer's (Lactated Ringer's) 1,000 mls @ 50 mls/hr IV .Q20H [facility] Last Admin: 07/15/18 03:57 Dose: 50 mls/hr Ondansetron HCl (Zofran Inj) 4 mg IVP Q6 PRN PRN Reason: Nausea/Vomiting Last Admin: 07/11/18 19:08 Dose: 4 mg Oxycodone HCl (Oxycodone Immediate Release Tab) 5 mg PO Q6 PRN PRN Reason: Pain, moderate (4-7) Senna/Docusate Sodium (Senokot S 50 Mg-8.6 Mg) 1 tab PO DAILY [facility] Last Admin: 07/15/18 10:56 Dose: 1 tab - Labs Labs: 07/15/18 07:47 07/13/18 06:05 PT 12.1 SECONDS (9.7-12.2) 07/07/18 06:30 INR 1.1 07/07/18 06:30 APTT 32 SECONDS (21-34) 07/07/18 06:30 - Constitutional Appears: No Acute Distress, Chronically Ill - Eye Exam Eye Exam: Normal appearance, PERRL - ENT Exam ENT Exam: Normal Exam - Respiratory Exam Respiratory Exam: Clear to Ausculation Bilateral, NORMAL BREATHING PATTERN - Cardiovascular Exam Cardiovascular Exam: REGULAR RHYTHM, +S1, +S2 - GI/Abdominal Exam GI & Abdominal Exam: Soft, Normal Bowel Sounds - Extremities Exam Extremities Exam: Full ROM, Normal Capillary Refill, Normal Inspection. absent : Joint Swelling, Pedal Edema - Back Exam Back Exam: NORMAL INSPECTION - Neurological Exam Neurological Exam: Alert, Awake, CN II-XII Intact, Normal Gait, Oriented x3 - Psychiatric Exam Psychiatric exam: Normal Affect, Normal Mood Assessment and Plan - Assessment and Plan (Free Text) Assessment: HIP REPLACEMENT. Plan: FOR REHAB.
[2018-07-16 08:37] VITALS: BP 120/74; PULSE 82; TEMP 98.1; O2SAT 100
[2018-07-16] MEDS: Calcium-Vit D 500 mg-200 Units Tab UD PO SCH (10:29)
[2018-07-16] MEDS: Docusate-Senna 50 mg-8.6 mg Tab PO SCH (10:29)
[2018-07-16] MEDS: Enoxaparin 30 mg Syringe SC SCH (10:30)
--- NOTE | 2018-07-16 13:45 | OP ---
Copied To: Marilia Canales MD Attending MD: Marilia Canales MD PROCEDURE DATE: 07/10/2018 PREOPERATIVE DIAGNOSIS: Right hip displaced femoral neck fracture. POSTOPERATIVE DIAGNOSES: Right hip: 1. Displaced femoral neck fracture. 2. Minimally displaced inferior pubic ramus fracture. PROCEDURE: Right total hip arthroplasty for femoral neck fracture. SURGEON: Marilia Canales MD DIRECT SUPPORT PROFESSIONAL: Amari Angel PA-C SECOND SCREEN WRITER: Alirio Thomas PA-C JUSTIFICATION FOR SCREEN WRITER: Amari Angel and Alirio Thomas are certified physician assistants, whose skilled surgical services were an absolute necessity for successful completion of the procedure with Amari Angel mate first and Alirio Thomas second assist. Both PAs were present for the entire case and was an absolute necessity for successful completion of the procedure as they provided skilled surgical assistance with carefully positioning the patient, management of surgical field, retraction of neurovascular structures, surgical approach, repeat trial and dislocation and relocations, preparation of the acetabulum including reaming and placement of trial and final implants, placement of acetabular screw, preparation of proximal femur including resection of the remaining femoral neck, removal of the remaining femoral neck fracture fragments, broaching and trialing of femoral component and head and neck including relocation and dislocation and placement of final implants and final relocation, repair of abductor and anterior capsule, repair of iliotibial tract, wound closure and transport of the patient carefully back to her bed. Amari Angel was present for the entire case and was an absolute necessity discussed with the completion of the procedure. Alirio Thomas was present for the entire case and was an absolute necessity for successful completion of the procedure. ANESTHESIA: General endotracheal anesthesia. ESTIMATED BLOOD LOSS: 500 mL. COMPLICATIONS: None. DRAINS: None. DISPOSITION: The patient was transferred to PACU in stable condition and tolerated the procedure well. SPECIMEN: Bony cuts were sent to Pathology as per hospital protocol. IMPLANTS: Medacta: 1. Versafit press-fit acetabular cup 46 mm diameter with two acetabular screws, one screw measuring 15 mm, one screw measuring 40 mm in length. Both cancellous screws nonmarking. 2. A 32 mm ultra high molecular weight polyethylene liner for acetabular cup. 3. A 32 mm cobalt chrome head with 0 offset standard. 4. Size 2 RIVERA coated standard femoral stem press-fit. 5. DBX putty from MTF 1 mL and 0.5 mL Allograft DBX putty used. INDICATIONS FOR SURGERY: The patient is a 68-year-old female with very poor medical history knowledge as the patient does not have a primary care physician and has not gone to the doctor for many years according to her family. The family and the patient both stated on 06/26/2018, while she was on her way to work, she lost her balance and fell on the street landing on her right side resulting in immediate 10/10 pain localized to the right lower extremity and difficulty with weightbearing. She was able to get up and ambulate with a limp and she stated that the pain was manageable for about a week to ten days. Finally, the pain worsened to the point where at this point in time she was unable to weightbear and she thought that things got significantly worse. Finally, she presented to the emergency room at [facility] on 07/07/2018 with right hip pain and inability to ambulate as well as bear weight on the right lower extremity. On evaluation by ER staff and review of imaging, she was diagnosed with a displaced right femoral neck fracture with a short and externally rotated right lower extremity. She was admitted to the medical service under Dr. Diego Chino and after working with cardiology workup and preoperative evaluation, she was finally cleared for surgery to proceed with surgery on 07/10/2018. She was indicated for right hip hemiarthroplasty versus total hip arthroplasty as treatment for her displaced femoral neck fracture at the age of 68. The patient is a highly functional, independently functioning community ambulator without assist devices and without difficulty and works a 40-hour work week on her feet standing at a [employer]. She did not have any complaints of groin pain or known arthritis. In discussing treatment options including hemiarthroplasty versus total hip arthroplasty with the patient and her family due to her activity level, the family requested that we attempt to proceed with one surgery that would be all encompassing being a total hip arthroplasty as a hemiarthroplasty could result in the need for revision surgery with a development of groin pain. The risks, benefits, and alternatives to the procedure were discussed in length with the patient and her family with the risks including but not limited to infection, neurovascular damage, periprosthetic fracture, iatrogenic injury, need for further surgery, failure of hardware and loosening, need for revision surgery, development of blood clots including DVT and PE, development of chronic pain and disability, inability to return to pre-injury level of activity and occupation, anesthesia reactions, cardiopulmonary collapse, . After answering all of the questions, stated that they understood the risks and wished to proceed with surgery. Once again, there was a cardiology workup requested by Anesthesia with the initial surgery being scheduled on 07/08/2018, and rescheduled for 07/10/2018, pending the cardiology workup at the request of anesthesia staff. Cardiology workup was negative and we proceeded with surgery on 07/10/2018 on the elective OR schedule at [facility]. PROCEDURE IN DETAIL: The patient was identified in the preoperative holding area and the right hip was marked for surgery. Once again as described above, the risks, benefits and alternatives to the total hip arthroplasty was discussed in length with the patient and the family and informed consent was obtained. After brief discussion with the anesthesia staff, the patient was taken to the operating room on her hospital bed. An initial time-out was done with the surgeon, anesthesia staff, OR staff and all in agreement with the patient, procedure being done and the extremity being operated on. General anesthesia was administered without difficulty or complication. The patient was then carefully transferred to the surgical OR table with all bony prominences and superficial neurovascular structures well padded. Once the patient was deemed to be stable, she was then carefully brought into the lateral position with the left hip down. leon was then positioned to hold the patient upright in the lateral position perpendicular to the plane of the floor. Once good positioning was confirmed, the right lower extremity was then prepped and draped in a standard sterile fashion. A final time-out was done with the surgeon, anesthesia staff, OR staff, all in agreement with the patient, procedure being done, and the extremity being operated on. An anterolateral/modified Hardinge approach to the hip was used for the surgery. An incision was made to the skin, down the subcutaneous tissue down to the level of the fascia while maintaining good hemostasis. Incision measured approximately 7 cm. The iliotibial fascia was identified and sharply incised with the Bradford scissor. This allowed to access the greater trochanteric bursa and the greater trochanter. An open greater trochanteric bursectomy was carried out to allow access to identify the fibers of the abductor. The anterior two thirds of the gluteus medius tendon insertion of the greater trochanter were identified and . The anterior one-third of the vastus lateralis insertion at the greater trochanter was also identified and . The anterior two thirds of the gluteus medius and the anterior one-third of the vastus lateralis would be underlying gluteus minimus were released completely from the greater trochanteric insertion with a cuff of healthy tissue remaining for future repair. This flap of gluteus minimus and medius as well as vastus lateralis was reflected anteriorly exposing the underlying anterior capsule. The anterior capsule of the hip was incised in a T-shape and the fracture hematoma was encountered and evacuated. The femoral neck fracture was identified and the femur was brought into external rotation to allow us to complete the osteotomy of the proximal femoral neck. This was carried out with the use of a saw blade successfully. We then used the cork screw to remove the remaining femoral neck and head from the acetabulum successfully. The preoperative yielded a 46 mm acetabular cup and sizing of the femoral head confirmed that a 46 mm cup will be used. We then began with sequential reaming with retractors in place. It was noted that at that point in time that the quality of the bone was very poor after the first reaming was carried out. There was a very thin medial wall and with the first ream with the smallest reamer, we encountered the periosteum of the opposite side of the medial wall with the trampoline effect visible as the medial wall was violated easily due to the thin nature and poor quality bone. The remaining anterior column, superior acetabular rim and the posterior column were intact. We then proceeded with positioning of the reamer with good abduction and anteversion maintained and sequentially reamed to a 46 mm reamer with good fit on trial. With the poor quality bone, initial plan of an acetabular liner dual mobility cup without acetabular screws was abandoned and a traditional Versafit cup with screw holes was utilized. Two screws were then placed in the superior position, one measuring 40 mm while encompassed between the two columns of the pelvis and a second screw placed just superior anterior contained in good length with good purchase of bone as well. It was also discovered during the reaming prior to placement of the final acetabular shell that there was a posterior wall fracture as well. It is hard to determine if this was an occult fracture that displaced or poor quality bone that gave during reaming. Regardless with the acetabular screws in good position, the cup appeared to be very stable and was able to endure multiple dislocation and relocation of the femur and hip joint during trialing and final placements. Fluoroscopic imaging was also used to confirm good cup position and placement of screws. Once the acetabular side was complete and the polyethylene liner was secured into position, we then turned our attention to proximal femoral preparation. The box osteotome followed by proximal reamer were advanced with the canal finder. We then started with sequential broach and reaming starting with a size 0 and finally a size 2 provided us with good stability and medial to lateral fill also confirmed on fluoroscopic imaging since it was there. A size 2 femoral component was trialed with a standard 0 offset head and good limb length was achieved and confirmed with good stability. At that point in time, a size 2 RIVERA coated Medacta stem was then carefully placed into position with good stability achieved. Once the Press-Fit stem was in position, a 32 mm cobalt chrome 0 offset head standard was then opened and also secured into position on the femoral neck after one more trial was carried out confirming good stability and limb length. With the final hip components in position, limb length was confirmed once again to be same length as the contralateral leg as well as stability with good stability achieved and soft tissue tensioning. Of note prior to final placement of the acetabular cup due to the loss of medial wall, 2 DBX putty allograft from MTF were opened, one was 1 mL and one was 0.5 mL both were used in their entirety to help with bony ingrowth and stability of the cup skilled nursing. We also used the reamings of the acetabular liner and the femoral head as bone graft as well, which was placed in the acetabulum prior to final placement of the acetabular cup with screws. Again, the construct was tested overall and found to be stable with a stable total hip arthroplasty resulting. Again, the acetabulum was tested and found to be stable with the two screws and stable and intact anterior column. It was also noted on the x-rays that there was a minimally displaced inferior pubic ramus fracture. Again this is possibly occult versus poor quality bone. Again, the acetabular cup with two screws was stable and under direct visualization and palpation, the anterior column was intact as well as the superior dome with a possible small posterior wall fracture. The wound was copiously irrigated as well as the joints with almost 3000 mL of normal saline overall. The anterior capsule was reapproximated with #1 Vicryl suture. The gluteus minimus and medius as well as vastus lateralis were repaired back to the greater trochanter repairing to the stable healthy cuff that was left behind during the initial surgical approach with alternating #2 Vicryl suture and #1 Vicryl suture. The gluteus medius and minimus repair and vastus lateralis repair were tested with external rotation and abduction of the hip and was found to be stable. Wound was copiously irrigated again and the iliotibial fascia was repaired with alternating with 2.0 FiberWire suture and #1 Vicryl suture. Subcutaneous tissue was reapproximated with 2.0 Vicryl suture followed by alberto for skin. Sterile dressings were applied. The patient was then carefully brought into the supine position and transferred back to her hospital bed where she was extubated and transferred to PACU in stable condition and tolerated the procedure well. I personally confirmed clinical limb length and found them to be of the same length between the right lower extremity and the contralateral left lower extremity being the nonoperative site. DISPOSITION: The patient will remain as an inpatient for a few days until she is medically cleared by the primary team and cardiology team for discharge. She will work with Case Management and Social Work to determine optimum placement. She will work with the Physical Therapy and under the conditions of multiple occult fractures of the inferior pubic ramus and posterior wall of the acetabulum after just undergoing a total hip arthroplasty, the patient should be nonweightbearing to the right lower extremity. Otherwise, there is no restrictions as this was an anterior lateral approach to the hip. She will be started on DVT prophylaxis starting postoperative day number one in the form of 30 mg Lovenox subcutaneous injection once daily unless the primary medical team has contraindication or wishes to use something different. She will receive adequate pain control. I will monitor her progress and once she is discharged from the hospital, she will follow up in my office at [facility] within two weeks. Marilia Canales MD
== END 2018-07-16 12:53 | DRG 956 ==
LOC: C.ER 04:59 → C.6T 06:45
PROVIDERS: ADMIT Internal Medicine; ATTEND Internal Medicine
PROC: 0SR906A Replacement of Right Hip Joint with Oxidized Zirconium on Polyethylene Synthetic Substitute, Uncemented, Open Approach (ICD-10-PCS; principal; 2018-07-10 06:30)
DX: S72.001A Fracture of unspecified part of neck of right femur, initial encounter for closed fracture (principal); S32.599A Other specified fracture of unspecified pubis, initial encounter for closed fracture; W01.0XXA Fall on same level from slipping, tripping and stumbling without subsequent striking against object, initial encounter; D50.0 Iron deficiency anemia secondary to blood loss (chronic); Y92.410 Unspecified street and highway as the place of occurrence of the external cause